=== PATIENT | female | born 1965 | race Two or more races ===

== ENCOUNTER 2024-04-15 17:52 | Emergency (ER) | payer BC ==
[~2024-04-15] VITALS: Ht 160 cm; Wt 67.4 kg
[2024-04-15 20:15] VITALS: BP 106/56; PULSE 120; RESP 16; TEMP 98.2; O2SAT 96
== END 2024-04-15 20:15 | disposition home or self-care (01) ==
LOC: ER 17:52
DX: T85.520A Displacement of bile duct prosthesis, initial encounter (principal); E11.22 Type 2 diabetes mellitus with diabetic chronic kidney disease; N18.6 End stage renal disease

== ENCOUNTER 2025-01-13 21:28 | Inpatient (IN) | payer BC ==
[~2025-01-13] VITALS: Ht 162.6 cm; Wt 77.3 kg
[2025-01-13] MEDS: DEXTROSE (50%) 50ML SYRG IV ONE (22:15)
--- NOTE | 2025-01-13 22:31 | DVH ---
CHEST RADIOGRAPH Indication: hypoglycemia Technique: Single frontal view of the chest was obtained Comparison: XY CHEST PORTABLE on DOS: 03/05/24 FINDINGS: Lines and Tubes: Dual lumen catheter in place with a right internal jugular vein with the tip in the right atrium. Lungs: Right lower lobe airspace disease and pleural effusion. Pleura: No effusion. No pneumothorax. Cardiomediastinal contours: Unremarkable Bones: No acute osseous abnormality. IMPRESSION: 1. Dual-lumen catheter in place from the right internal jugular vein with the tip in the right atrium . 2. Airspace disease in the right lower lobe with pleural effusion.
[2025-01-13 22:33] LABS: Hematocrit 18.2 % (36.0-46.0); Mean Corpuscular Hemoglobin 23.8 pg (28.0-32.0); Mean Corpuscular Hgb Conc. 31.2 g/dL (32.0-36.0); Mean Corpuscular Volume 76.3 fL (80.0-100.0); Platelet Count (auto) 61 10^3/uL (140-450); Red Blood Cells 2.39 10^6/uL (4.0-5.20); Red Cell Distribution Width 18.4 % (11.8-14.3); White Blood Cell 8.8 10^3/uL (4.4-10.8)
[2025-01-13 22:41] LABS: Sodium 137 mmol/L (136-145)
[2025-01-13 22:42] LABS: Anion Gap 5 (5-15)
[2025-01-13 22:47] LABS: BUN/Creatinine Ratio 7.7 (10.0-20.0); Blood Urea Nitrogen 14 mg/dL (9-23)
[2025-01-13 22:48] LABS: Hemoglobin 5.7 g/dL (12.2-16.2)
[2025-01-13 22:49] LABS: Band Neutrophils % (manual) 0; Basophils % (manual) 0 (0.0-2.0); Blast Cells 0; Metamyelocytes % 0; Myelocytes % 0; Promyelocytes % 0; Reactive Lymphocytes 0
[2025-01-13 22:51] LABS: Calcium 7.9 mg/dL (8.7-10.4); Carbon Dioxide 34 mmol/L (20-31); Chloride 98 mmol/L (98-107); Glucose 157 mg/dL (74-106); Potassium 3.5 mmol/L (3.5-5.1)
[2025-01-13 23:54] LABS: Eosinophils % (manual) 1 (0-7); Monocytes % (manual) 3 (0-12)
[2025-01-13 23:55] LABS: Anisocytosis Slight; Hypochromia Moderate; Lymphocytes % (manual) 12 (10.0-50.0); Platelet Estimate Decreased
[2025-01-13 23:56] LABS: Stomatocytes Few
[2025-01-14] VITALS (18 sets, daily range): BP systolic 96–123; BP diastolic 55–73; PULSE 84–117; RESP 13–24; TEMP 98–98.5; O2SAT 92–100
[2025-01-14] MEDS: cefTRIAXone 1GM/50ML D5W 50 ML IV ONE (01:07)
--- NOTE | 2025-01-14 01:12 | ED.PDOC ---
History of Present Illness HPI Comments 59-year-old female with a history of diabetes, liver failure status post liver transplant, and prior pneumonia brought in by family for evaluation of hypoglycemia. Patient's daughter states that her blood glucose has been decreasing since around 1300 today. At around 3:00 p.m. it was in the 50s and remained low despite the patient drinking juice. Patient also reports generalized weakness and shortness a breath. She denies any pain, nausea, vomiting, acute bleeding or black stools. 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 Hx Family History Family History: Reviewed,noncontributory to illness Social History Smoker: Non-Smoker Alcohol: Denies ETOH Use Drugs: Denies Drug Use Lives In: Home All Other Systems: Reviewed and Negative (Comprehensive systems review obtained and negative except for what is stated in the HPI.) Physical Exam General Appearance: No Apparent Distress, Other (Pale, chronically ill- appearing) HEENT: Pale Conjuntivae (L), Pale Conjuntivae (R), Other (Pupils and face symmetric, moist mucous membranes) Neck: Full Range of Motion, Normal Inspection Respiratory: Decreased Breath Sounds, No Accessory Muscle Use, No Respiratory Distress, Normal Breath Sounds Cardiovascular: No Edema, No JVD, Tachycardia Breast Exam: Deferred Gastrointestinal: Non Tender, Soft Genitalia: Deferred Pelvic: Deferred Rectal: Deferred Extremities: Normal inspection, Normal range of motion, Non-tender Neurologic: Alert (Oriented x4), Normal Affect, Normal Mood, Other (Moves all extremities. No gross focal deficit.) Cerebellar Function: NOT DONE Reflexes: NOT DONE Skin: Dry, Jaundice, Pallor, Other (Cool to the touch) Lymphatic: NOT DONE Was a procedure done? Was a procedure done?: No EKG EKG : Comments Sinus tach, rate 107, normal intervals, normal axis, low-voltage QRS, nonspecific T changes. Differential Dx Considerations may include: Hypoglycemia, infection such as UTI or pneumonia, anemia, sepsis, arrhythmia, MN, electrolyte imbalance, hypovolemia, renal failure, among others X-Ray, Labs, Meds, VS Vital Signs Date Time Temp Pulse Resp B/P (MAP) Pulse Ox O2 Delivery O2 Flow Rate FiO2 01/14/25 02:00 98.4 103 17 105/50 (68) 100 98.4 01/14/25 01:44 98.4 104 22 96/56 98.4 01/14/25 00:00 103 12 99/47 (64) 100 01/14/25 00:00 102 01/13/25 23:17 107 01/13/25 22:05 98.8 117 16 71/39 (50) 95 01/13/25 22:00 98.2 103 16 105/44 (64) 90 98.2 01/13/25 22:00 Nasal Cannula* 2 28 Lab Test 01/14/25 01:00 01/13/25 23:11 01/13/25 22:46 01/13/25 22:44 Range/Units Lactic Acid Level 2.5 *H 0.4-2.0 mmol/L Troponin I High Sensitivity < 3 L </=34 ng/L POC Glucose 109 H 109 H 70-106 mg/dl Test 01/13/25 22:20 01/13/25 21:52 Range/Units White Blood Count 8.8 4.4-10.8 10^3/uL Red Blood Count 2.39 L 4.0-5.20 10^6/uL Hemoglobin 5.7 *L 12.2-16.2 g/dL Hematocrit 18.2 L 36.0-46.0 % Mean Corpuscular Volume 76.3 L 80.0-100.0 fL Mean Corpuscular Hemoglobin 23.8 L 28.0-32.0 pg Mean Corpuscular Hemoglobin Concent 31.2 L 32.0-36.0 g/dL Red Cell Distribution Width 18.4 H 11.8-14.3 % Platelet Count 61 L 140-450 10^3/uL Mean Platelet Volume 7.7 6.9-10.8 fL Neutrophils (%) (Auto) 37.0-80.0 % Lymphocytes (%) (Auto) 10.0-50.0 % Monocytes (%) (Auto) 0.0-12.0 % Basophils (%) (Auto) 0.0-2.0 % Neutrophils # (Auto) 1.6-8.6 10 ^3/uL Lymphocytes # (Auto) 0.4-5.4 10 ^3/uL Monocytes # (Auto) 0-1.3 10 ^3/uL Differential Total Cells Counted 100.0 100 Neutrophils % (Manual) 84 H 37.0-80.0 Band Neutrophils % (Manual) 0 Lymphocytes % (Manual) 12 10.0-50.0 Monocytes % (Manual) 3 0-12 Eosinophils % (Manual) 1 0-7 Basophils % (Manual) 0 0.0-2.0 Metamyelocytes % (manual) 0 Myelocytes % (Manual) 0 Promyelocytes % (Manual) 0 Blast Cells % (Manual) 0 Reactive Lymphocytes 0 Platelet Estimate Decreased Hypochromasia (manual) Moderate Poikilocytosis (manual) Slight Anisocytosis (manual) Slight Microcytosis Slight Stomatocytes Few Schistocytes Few Sodium Level 137 136-145 mmol/L Potassium Level 3.5 3.5-5.1 mmol/L Chloride Level 98 98-107 mmol/L Carbon Dioxide Level 34 H 20-31 mmol/L Anion Gap 5 5-15 Blood Urea Nitrogen 14 9-23 mg/dL Creatinine 1.82 H 0.550-1.02 mg/dL Glomerular Filtration Rate Calc 32 >90 mL/min BUN/Creatinine Ratio 7.7 L 10.0-20.0 Serum Glucose 157 H 74-106 mg/dL Calcium Level 7.9 L 8.7-10.4 mg/dL Troponin I High Sensitivity < 3 L </=34 ng/L B-Type Natriuretic Peptide 233.77 0-100 pg/mL POC Glucose 37 *L 70-106 mg/dl Current Medications Medications (Trade) Dose Ordered Sig/Yani Route Start Time Stop Time Status Last Admin Dextrose 50 ml ONCE ONCE IV 01/13/25 22:15 01/13/25 22:16 DC 01/13/25 22:15 Ceftriaxone Sodium 50 ml @ 100 mls/hr ONCE ONCE IV 01/14/25 01:00 01/14/25 01:29 DC 01/14/25 01:07 Azithromycin 250 ml @ 125 mls/hr ONCE ONCE IV 01/14/25 01:00 01/14/25 02:59 DC 01/14/25 01:16 PROCEDURE(s): CXRP - CHEST PORTABLE REASON: hypoglycemia ORDER NUMBER(s): [id number], ACCESSION NUMBER(s): [id number] CHEST RADIOGRAPH Indication: hypoglycemia Technique: Single frontal view of the chest was obtained Comparison: XY CHEST PORTABLE on DOS: 03/05/24 FINDINGS: Lines and Tubes: Dual lumen catheter in place with a right internal jugular vein with the tip in the right atrium. Lungs: Right lower lobe airspace disease and pleural effusion. Pleura: No effusion. No pneumothorax. Cardiomediastinal contours: Unremarkable Bones: No acute osseous abnormality. IMPRESSION: 1. Dual-lumen catheter in place from the right internal jugular vein with the tip in the right atrium. 2. Airspace disease in the right lower lobe with pleural effusion. X-Ray, Labs, Meds, VS Comment 59-year-old female with a history of diabetes, liver failure status post liver transplant, CKD brought in by family for evaluation of hypoglycemia, shortness of breath and generalized weakness. Accu-Chek at triage was 37 Vitals remarkable for heart rate 103, BP 105/44, oxygen saturation 90% on 2 L nasal cannula Exam remarkable for pallor, tachycardia and diminished breath sounds Rhythm strip independently interpreted by me: Sinus tach, rate 107, no ectopy. Chest x-ray IMPRESSION: 1. Dual-lumen catheter in place from the right internal jugular vein with the tip in the right atrium. 2. Airspace disease in the right lower lobe with pleural effusion. CBC remarkable for hemoglobin 5.7, hematocrit 18.2, platelets 61, metabolic panel remarkable for CO2 34, creatinine 1.82, glucose 157, calcium 7.9, troponin negative x2, BNP 233.77, UA pending Patient treated with the following in the ED: D50 1 amp IV and p.o. juice, typed and crossed for 2 units packed red cells and transfusion ordered, Rocephin 1 g IV, Zithromax 500 mg IV On re-evaluation, patient is alert with stable vitals. Blood glucose is 103 on repeat Accu-Chek. Plan is to admit the patient for transfusion, IV antibiotics and hematology/pulmonology evaluation Time of 1ST Reevaluation: 01:08 Reevaluation 1ST: Improved Patient Education/Counseling: Diagnosis, Treatment Family Education/Counseling: Diagnosis, Treatment Departure 1 Departure Time of Disposition: 01:08 Impression: Primary Impression: Hypoglycemia Additional Impressions: Anemia Qualified Codes: D64.9 - Anemia, unspecified Thrombocytopenia Pneumonia Qualified Codes: J18.9 - Pneumonia, unspecified organism Pleural effusion Disposition: ADMITTED INPATIENT Admit to: Tele Condition: Guarded Critical Care Note Critical Care Time?: Yes (45 min-critical care time only) Critical care comment: Critical care time including multiple bedside re-evaluations, review of lab and imaging studies, and discussion of the case with the admitting provider. Patient is high risk for hemodynamic, metabolic and/or respiratory decompensat ion. Stability Stability form required: No Heart Score Heart Score: Heart Score Response (Comments) Value History N/A 0 EKG N/A 0 Age N/A 0 Risk Factors N/A 0 Troponin N/A 0 Total 0 HUSSAIN BETH MD Jan 14, 2025 01:12
[2025-01-14] MEDS: AZITHROMYCIN 500MG/ 250ML 250 ML IV ONE (01:16)
[2025-01-14 01:44] LABS: Lactic Acid w/Reflex 2.5 mmol/L (0.4-2.0)
[2025-01-14] MEDS ORDERED: MORPHINE SULFATE INJ 2 MG/ml SYRG IV PRN (02:15)
[2025-01-14] MEDS ORDERED: METOPROLOL TARTRATE 25 MG TAB PO ONE (02:15)
[2025-01-14] MEDS ORDERED: MYCOPHENOLATE 250 MG CAP PO SCH ×2 (02:15→10:00)
[2025-01-14] MEDS ORDERED: NITROGLYCERIN 0.4 MG SL TAB SL PRN (02:15)
--- NOTE | 2025-01-14 03:22 | DVHHPRES ---
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 Brought by the family due to hypoglycemia. According to the daughter and the patient, patient had dialysis, 2lt were pulled out and she came at home at 5:00 p.m. Found her sugars in the 50s. her insulin sliding scale at home is lispro 15 13 and 3 Here in the emergency room, was found tachycardic, hypotensive and hypoxemic with the need of 2lt of O2 CBC showed mild leukopenia, severe anemia hemoglobin 5.7, thrombocytopenia 61 CMP elevated creatinine 1.82, lactic acid 2.5 chest xray: 1. Dual-lumen catheter in place from the right internal jugular vein with the tip in the right atrium. 2. Airspace disease in the right lower lobe with pleural effusion. Glucose: 37 109 109 after dextrose and juice 2RBC were ordered Azithromycin and ceftriaxone was started The daughter states that patient was having diarrhea and her dr started fidax omicin, but she did not pick it up, she denies diarrhea now Home meds: Mycophenolate 250 mg b.i.d. fluconazole 1 tablet daily tacrolimus 4 mg b.i.d. lispro 15 13 and 3 atovaquone 750 mg per 5 mL 10 cc daily furosemide 40 mg daily only the days of dialysis, metoprolol 12.5 b.i.d., pantoprazole 40 mg daily Review of Systems Constitutional: No: Fever, Chills, Sweats, Weakness, Malaise, Other Eyes: No: Pain, Vision change, Conjunctivae inflammation, Eyelid inflammation, Other, Redness ENT: No: Ear pain, Ear discharge, Nose pain, Nose discharge, Nose congestion, Mouth pain, Mouth swelling, Throat pain, Throat swelling, Other Respiratory: No: Cough, Dry, Shortness of breath, SOB with excertion, Wheezing, Hemoptysis, Pleuritic Pain, Sputum, Wheezing, Other Cardiovascular: No: Chest Pain, Palpitations, Orthopnea, Paroxysmal Noc. Dyspnea, Edema, Lt Headedness, Other Gastrointestinal: No: Nausea, Vomiting, Abdominal Pain, Diarrhea, Constipation, Melena, Hematochezia, Other Genitourinary: No Dysuria, No Frequency, No Incontinence, No Hematuria, No Retention, No Other Skin: No: Rash, Lesions, Jaundice, Bruising, Other Neurological: No: Weakness, Numbness, Incoordination, Change in speech, Confusion, Seizures, Other Allergies: Coded Allergies: NO KNOWN ALLERGIES (Unverified , 03/05/24) Medications Current Medications Medications Dose Ordered Sig/Yani Route Start Time Stop Time Status Last Admin Dose Admin Nitroglycerin 0.4 mg Q5MINP PRN SL 01/14/25 02:15 Morphine Sulfate 2 mg Q30M PRN IV 01/14/25 02:15 Mycophenolate Mofetil 250 mg BID PO 01/14/25 02:15 Tacrolimus 4 mg BID PO 01/14/25 10:00 Pantoprazole Sodium 40 mg DAILY IV 01/14/25 10:00 Metoprolol Tartrate 12.5 mg DAILY PO 01/14/25 10:00 Patient Own Medication 10 DAILY PO 01/14/25 10:00 UNV Azithromycin 250 ml @ 125 mls/hr DAILY IV 01/14/25 10:00 Ceftriaxone Sodium 50 ml @ 100 mls/hr DAILY IV 01/14/25 10:00 Fluconazole 100 mg DAILY PO 01/14/25 10:00 Exam Vital Signs Vital Signs Date Time Temp Pulse Resp B/P (MAP) Pulse Ox O2 Delivery O2 Flow Rate FiO2 01/14/25 02:23 98.3 100 24 108/60 98.3 01/14/25 02:00 100 01/13/25 22:00 Nasal Cannula* 2 28 General Appearance: Alert, Oriented X3, Cooperative, mild distress HEENT: Atraumatic, PERRLA, EOMI, Mucous membr. moist/pink Respiratory: Other (Diminished breath sounds, dialysis catheter in place) Cardiovascular: Regular rate, Normal S1, Normal S2 Abdominal: Normal bowel sounds, Soft Extremities: No clubbing, No cyanosis, No edema Skin: No rashes Neuro: Normal gait, Normal speech, Strength at 5/5 X4 ext Psych/Mental Status: Mental status NL, Mood NL Labs/Xrays Labs Test 01/14/25 01:00 01/13/25 23:11 01/13/25 22:46 01/13/25 22:20 Range/Units Lactic Acid Level 2.5 *H 0.4-2.0 mmol/L Troponin I High Sensitivity < 3 L </=34 ng/L POC Glucose 109 H 70-106 mg/dl White Blood Count 8.8 4.4-10.8 10^3/uL Red Blood Count 2.39 L 4.0-5.20 10^6/uL Hemoglobin 5.7 *L 12.2-16.2 g/dL Hematocrit 18.2 L 36.0-46.0 % Mean Corpuscular Volume 76.3 L 80.0-100.0 fL Mean Corpuscular Hemoglobin 23.8 L 28.0-32.0 pg Mean Corpuscular Hemoglobin Concent 31.2 L 32.0-36.0 g/dL Red Cell Distribution Width 18.4 H 11.8-14.3 % Platelet Count 61 L 140-450 10^3/uL Mean Platelet Volume 7.7 6.9-10.8 fL Neutrophils (%) (Auto) 37.0-80.0 % Lymphocytes (%) (Auto) 10.0-50.0 % Monocytes (%) (Auto) 0.0-12.0 % Basophils (%) (Auto) 0.0-2.0 % Neutrophils # (Auto) 1.6-8.6 10 ^3/uL Lymphocytes # (Auto) 0.4-5.4 10 ^3/uL Monocytes # (Auto) 0-1.3 10 ^3/uL Differential Total Cells Counted 100.0 100 Neutrophils % (Manual) 84 H 37.0-80.0 Band Neutrophils % (Manual) 0 Lymphocytes % (Manual) 12 10.0-50.0 Monocytes % (Manual) 3 0-12 Eosinophils % (Manual) 1 0-7 Basophils % (Manual) 0 0.0-2.0 Metamyelocytes % (manual) 0 Myelocytes % (Manual) 0 Promyelocytes % (Manual) 0 Blast Cells % (Manual) 0 Reactive Lymphocytes 0 Platelet Estimate Decreased Hypochromasia (manual) Moderate Poikilocytosis (manual) Slight Anisocytosis (manual) Slight Microcytosis Slight Stomatocytes Few Schistocytes Few Sodium Level 137 136-145 mmol/L Potassium Level 3.5 3.5-5.1 mmol/L Chloride Level 98 98-107 mmol/L Carbon Dioxide Level 34 H 20-31 mmol/L Anion Gap 5 5-15 Blood Urea Nitrogen 14 9-23 mg/dL Creatinine 1.82 H 0.550-1.02 mg/dL Glomerular Filtration Rate Calc 32 >90 mL/min BUN/Creatinine Ratio 7.7 L 10.0-20.0 Serum Glucose 157 H 74-106 mg/dL Calcium Level 7.9 L 8.7-10.4 mg/dL B-Type Natriuretic Peptide 233.77 0-100 pg/mL Assessment/Plan Assessment/Plan #Severe anemia #Sepsis due to pneumonia Gram-positive gram negative #Acute respiratory failure #Thrombocytopenia #Hypoglycemia resolved #Pleural effusion #Long-term diabetes- insulin-dependent #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 associated the steatotic liver disease status post liver transplant 2023 #ESRD on hemodialysis (M and F) #Immunocompromised state #Lactic acidosis Admit Telemetry Oxygen 2 L Continue transfusion of 2 red blood cells Continue azithromycin ceftriaxone Nephrology [facility] group consult Start mycophenolate tacrolimus Start atovaquone and fluconazole Start metoprolol pantoprazole Order blood culture respiratory culture stool occult blood stool bacterial culture stool WBC C diff, iron panel erythropoietin ferritin MRSA screen urine culture Labs for tomorrow: CBC CMP UDS A1c lactic acid lipid panel magnesium phosphorus PT PTT TSH, vitamin-D vitamin B12, haptoglobin Order chest ultrasound and echo Order EKG Hold on insulin for now Accu-Cheks every 4 hours COVID-influenza swab Case discussed with Dr. Fernandes Time spent on care 31 minutes Full code Plan discussed with: Patient, Other (rn) My Orders Orders - LEONCIO VARGAS RESIDENT Procedure Category Date Status Time Admit ADMIT 01/14/25 Transmitted 02:07 Nitroglycerin PHA 01/14/25 In Process Sublingual (Ntrostat 02:15 Morphine Sulfate PHA 01/14/25 In Process Injection 02:15 Oxygen By Nasal RT 01/14/25 Transmitted Cannula 02:07 Stat Ekg For Chest JOANNA 01/14/25 In Process Pain 02:07 Notify Md Of Changes JOANNA 01/14/25 In Process From Base 02:07 Development And Housing Director For JOANNA 01/14/25 In Process 24 Hours 02:07 Emergency Dysrhythmia JOANNA 01/14/25 In Process Protocol 02:07 Rhythm Strips Once JOANNA 01/14/25 In Process Every Shift 02:07 *Dr. Paige Pollack -Da CONS 01/14/25 Transmitted Elizabet 02:07 Mycophenolate Mofetil PHA 01/14/25 In Process (Cellcept) 02:15 Tacrolimus (Prograf) PHA 01/14/25 In Process 10:00 Pantoprazole PHA 01/14/25 In Process (Protonix) 10:00 Respiratory Culture TOMI 01/14/25 Logged W/ Gs 02:07 Stool Occult Blood LAB 01/14/25 Logged 02:07 Stool Bacterial TOMI 01/14/25 Logged Culture 02:07 Stool Wbc LAB 01/14/25 Logged 02:07 Clostridium Difficile TOMI 01/14/25 Logged Toxin 02:07 Iron Panel LAB 01/14/25 Logged 02:07 Erythropoietin LAB 01/14/25 Logged 02:07 Ferritin LAB 01/14/25 Logged 02:07 Mrsa Screen TOMI 01/14/25 Logged 02:07 Urine Bacterial TOMI 01/14/25 Logged Culture 02:07 Complete Blood Count LAB 01/15/25 Verified 04:00 Comprehensive LAB 01/15/25 Verified Metabolic Panel 04:00 Drug Screen LAB 01/15/25 Verified 04:00 Hemoglobin A1c LAB 01/15/25 Verified 04:00 Lactic Acid W/ Reflex LAB 01/15/25 Verified Order 04:00 Lipid Panel LAB 01/15/25 Verified 04:00 Magnesium LAB 01/15/25 Verified 04:00 Phosphorus LAB 01/15/25 Verified 04:00 PTPTT LAB 01/15/25 Verified 04:00 Thyroid Stimulating LAB 01/15/25 Verified Hormone 04:00 Accucheck ED NURSING 01/14/25 Transmitted 07:00 Accucheck ED NURSING 01/14/25 Transmitted 11:30 Accucheck ED NURSING 01/14/25 Transmitted 17:00 Accucheck ED NURSING 01/14/25 Transmitted 22:00 Accucheck ED NURSING 01/15/25 Transmitted 07:00 Accucheck ED NURSING 01/15/25 Transmitted 11:30 Accucheck ED NURSING 01/15/25 Transmitted 17:00 Accucheck ED NURSING 01/15/25 Transmitted 22:00 Accucheck ED NURSING 01/16/25 Transmitted 07:00 Accucheck ED NURSING 01/16/25 Transmitted 11:30 Accucheck ED NURSING 01/16/25 Transmitted 17:00 Accucheck ED NURSING 01/16/25 Transmitted 22:00 Accucheck ED NURSING 01/17/25 Transmitted 07:00 Accucheck ED NURSING 01/17/25 Transmitted 11:30 Accucheck ED NURSING 01/17/25 Transmitted 17:00 Accucheck ED NURSING 01/17/25 Transmitted 22:00 Accucheck ED NURSING 01/18/25 Transmitted 07:00 Accucheck ED NURSING 01/18/25 Transmitted 11:30 Accucheck ED NURSING 01/18/25 Transmitted 17:00 Accucheck ED NURSING 01/18/25 Transmitted 22:00 Accucheck ED NURSING 01/19/25 Transmitted 07:00 Accucheck ED NURSING 01/19/25 Transmitted 11:30 Accucheck ED NURSING 01/19/25 Transmitted 17:00 Accucheck ED NURSING 01/19/25 Transmitted 22:00 Accucheck ED NURSING 01/20/25 Transmitted 07:00 Accucheck ED NURSING 01/20/25 Transmitted 11:30 Accucheck ED NURSING 01/20/25 Transmitted 17:00 Accucheck ED NURSING 01/20/25 Transmitted 22:00 Accucheck ED NURSING 01/21/25 Transmitted 07:00 Accucheck ED NURSING 01/21/25 Transmitted 11:30 Accucheck ED NURSING 01/21/25 Transmitted 17:00 Accucheck ED NURSING 01/21/25 Transmitted 22:00 Metoprolol Tartrate PHA 01/14/25 In Process Tablet (Lopressor Ta 10:00 Patients Own PHA 01/14/25 Pending Medication 10:00 Azithromycin 500mg/ PHA 01/14/25 In Process 250ml (Zithromax 50 10:00 Ceftriaxone 1gm/50ml PHA 01/14/25 In Process D5w (Rocephin) 10:00 Haptoglobin LAB 01/14/25 Logged 02:34 Vitamin B12 LAB 01/15/25 Verified 04:00 Vitamin D, 25-Hydroxy LAB 01/15/25 Verified 04:00 Mrsa Screen TOMI 01/14/25 Uncollected 02:37 Rapid Influenza A&B LAB 01/14/25 Logged 02:37 Fluconazole Tablet PHA 01/14/25 In Process (Diflucan Tablet) 10:00 Electrocardigram EKG 01/14/25 Logged 02:44 Chest Ultrasound US 01/14/25 Logged 02:50 Date of Service: Jan 14, 2025 Billing Provider: ABRAHAM FERNANDES MD Common Visit Codes: 49520-LPDKHOC INP/OBS CARE (HIGH) LEONCIO VARGAS RESIDENT Jan 14, 2025 03:22 ABRAHAM FERNANDES MD Jan 14, 2025 08:45
[2025-01-14 04:10] LABS: COVID19 ANTIGEN SOFIA FIA NEGATIVE (NEGATIVE); Rapid Influenza A Negative (Negative); Rapid Influenza B Negative (Negative)
--- NOTE | 2025-01-14 05:18 | ECG ---
[facility] Test Date: 2025-01-13 Test Time: 23:17:57 Pat Name: RATNA SHETTY Department: ED Room: 0237T Gender: F Rose Grower: EVETTE : 1965 Requested By: HUSSAIN SWARTZ Order Number: [id number] Reading MD: Sanju Sherwood Measurements Intervals [place] Rate: 107 P: 54 MD: 127 QRS: 71 QRSD: 75 T: 57 QT: 326 QTc: 435 Interpretive Statements Sinus tachycardia Ventricular premature complex Aberrant conduction of SV complex(es) Low voltage, extremity leads Nonspecific T abnormalities, lateral leads Electronically Signed On 01-16-2025 22:03:59 PST by Sanju Sherwood Please click the below link to view image of tracing.
--- NOTE | 2025-01-14 07:58 | DVH ---
Bilateral Chest Sonogram Date: 01/14/2025 07:01 AM Clinical history: bilateral pleural effusion Technique: Limited sonographic evaluation of the bilateral chest was performed to evaluate for pleu ral effusion. Finding/Impression: There is are trace bilateral pleural effusions visualized which is insufficient fluid for performance of thoracentesis. Complex cystic structure in the liver 18 cm incidentally seen. Further evaluation with MRI with contr ast is recommended.
[2025-01-14] MEDS: ATOVAQUONE 750 MG/5 ML PO SCH (10:00)
[2025-01-14] MEDS: FLUCONAZOLE 100 MG TAB PO SCH (10:31)
[2025-01-14] MEDS: METOPROLOL TARTRATE 25 MG TAB PO SCH (10:31)
[2025-01-14] MEDS: PANTOPRAZOLE 40 MG/10 ML VIAL INJ IV SCH (10:32)
[2025-01-14] MEDS: TACROLIMUS 1 MG CAP PO SCH (10:33)
[2025-01-14] MEDS: MYCOPHENOLATE 250 MG CAP PO SCH (10:33)
[2025-01-14 10:41] LABS: % Iron Saturation 20.4 % (15-50)
[2025-01-14] MEDS: cefTRIAXone 1GM/50ML D5W 50 ML IV SCH (10:49)
[2025-01-14] MEDS: AZITHROMYCIN 500MG/ 250ML 250 ML IV SCH (11:34)
--- NOTE | 2025-01-14 12:31 | DVHSR ---
APPROVED REPORT EXAM: Two-dimensional and M-mode echocardiogram with Doppler and color Doppler. Blood Pressure: 110/62 mmHg INDICATION rule out chf RISK FACTORS Height: 5'4, Weight: 120 DIMENSIONS LVDd4.1 (3.8-5.7cm)LA (2D)4.2 (1.9-4.0cm)Aortic Root3.1 (2.0-3.7cm) LVDs2.7 (2.5-4.0cm)LA (MM) (1.9-4.0cm)Aortic Cusp Exc1.9 (1.5-2.0cm) EF (%) 60.0 (55-70%)Rt. Atrium2.5 (1.9-4.0cm)Asc. Aorta2.8 cm IVSd1.0 (0.7-1.1cm)RV (D)2.2 (1.8-2.4cm) PWd0.9 (0.7-1.1cm) Mitral Valve MitralMitral Stenosis E wave0.81m/sMV Mean GR.mmHg A wave0.87m/sMV Peak GR.mmHg E/A ratio0.92D MVAcm2 DECEL [id number] 1/2 Timems Aortic Valve Aortic ValveAortic Stenosis V11.14m/Breonna Mean GR.5mmHg V21.38m/Breonna Peak GR.8mmHg LVOT Diameter1.8 (1.8-2.4cm)Doppler AVA2.10cm2 Pulmonic Valve V20.96m/s Conclusion lvef 60% by visual estimate normal rv function left atrium enlarged mild no severe valve abnormaliteis noted
--- NOTE | 2025-01-14 13:48 | DVHPN2 ---
Progress Note Date Seen: Jan 14, 2025 Medical Necessity Reason Pt with a Central, PICC or Fol: No Subjective Patient reports: No new complaints Review of Systems: HEENT:Normal, CVS:Normal, RESPIRATORY:Normal, GI:Normal, :Normal, MSK:Normal, NEURO:Normal Objective vital signs Vital Sign Date Time Temp Pulse Resp B/P (MAP) Pulse Ox O2 Delivery O2 Flow Rate FiO2 01/14/25 11:49 97 01/14/25 11:48 109/57 01/14/25 10:00 18 100 01/14/25 08:15 Nasal Cannula* 2 28 01/14/25 06:14 98.1 98.1 Total Intake and Output 01/13/25 01/13/25 01/14/25 15:00 23:00 07:00 Intake Total 1500 ml Output Total 0 ml Balance 1500 ml medications Current Medications Medications Dose Ordered Sig/Yani Route Start Time Stop Time Status Last Admin Dose Admin Nitroglycerin 0.4 mg Q5MINP PRN SL 01/14/25 02:15 Morphine Sulfate 2 mg Q30M PRN IV 01/14/25 02:15 Tacrolimus 4 mg BID PO 01/14/25 10:00 01/14/25 10:33 4 MG Pantoprazole Sodium 40 mg DAILY IV 01/14/25 10:00 01/14/25 10:32 40 MG Metoprolol Tartrate 12.5 mg DAILY PO 01/14/25 10:00 01/14/25 10:31 12.5 MG Patient Own Medication 10 DAILY PO 01/14/25 10:00 Azithromycin 250 ml @ 125 mls/hr DAILY IV 01/14/25 10:00 01/14/25 11:34 125 MLS/HR Ceftriaxone Sodium 50 ml @ 100 mls/hr DAILY IV 01/14/25 10:00 01/14/25 10:49 100 MLS/HR Fluconazole 100 mg DAILY PO 01/14/25 10:00 01/14/25 10:31 100 MG Mycophenolate Mofetil 250 mg Q12H PO 01/14/25 09:00 01/14/25 10:33 250 MG Examination: GENERAL:Normal, HEENT:Normal, NECK:Normal, LUNGS:Normal, CVS:Normal, ABDOMEN:Normal, MSK:Normal, SKIN:Normal, NEURO:Normal, :Normal laboratory and microbiology Laboratory Tests 01/13/25 22:20 Test 01/13/25 22:20 Range/Units Serum Glucose 157 H 74-106 mg/dL Microbiology Date/Time Source Procedure Growth Status 01/14/25 03:06 Stool Stool Culture - Preliminary Resulted 01/14/25 03:06 Stool Shiga Toxin I & II - Final Resulted 01/14/25 03:06 Stool Clostridium difficile Toxin Assay - Final Resulted 01/14/25 02:45 Nose MRSA Screen - Final Complete Problem List/Assessment/Plan Problem List/Assessment/Plan #1 hypoglycemia: ssi #2 anemia s/p transfusion: check cbc #3 thrombocytopenia #4 s/p liver txp #5 esrd on dialysis #6 acute diastolic heart failure: dialysis #7 dm #8 h/o recent c diff infection advance care planning- full code- time spent 19 mins Plan discussed with: Patient My Orders My Orders Orders - VIKI HUFF MD Procedure Category Date Status Time Complete Blood Count LAB 01/14/25 Logged 13:40 Complete Blood Count LAB 01/15/25 Verified 06:00 Comprehensive LAB 01/15/25 Verified Metabolic Panel 06:00 Chest Portable XY 01/15/25 Logged 06:00 Pt Request For Service PT 01/14/25 Logged 13:40 Date of Service: Jan 14, 2025 Billing Provider: VIKI HUFF MD Common Visit Codes: [id number] INP/OBS CARE(HIGH) Secondary Visit Codes: [id number] CARE PLAN 30 MINUTES CC Plasma Assessment Blood Product Administration S: [id number] VIKI HUFF MD Jan 14, 2025 13:48
[2025-01-14] MEDS ORDERED: DEXTROSE (50%) 50ML SYRG IV PRN (14:00)
[2025-01-14] MEDS ORDERED: TACR1CAP4 (15:32)
[2025-01-14] MEDS ORDERED: ATOV5SUS PO (15:32)
[2025-01-14] MEDS ORDERED: MYCO250C4 (15:32)
[2025-01-14] MEDS ORDERED: URSO300C2 (15:32)
[2025-01-14] MEDS ORDERED: FURO20TA4 (15:32)
[2025-01-14] MEDS ORDERED: FIDA200T (15:32)
--- NOTE | 2025-01-14 15:53 | DVHINCON2 ---
Date of service: Jan 14, [address] Cottrell Reason for Consultation End-stage kidney disease History of Present Illness This is a 59-year-old female with history of liver transplant secondary to nonalcoholic steatohepatitis in May of 2024 at [facility], end-stage kidney disease requiring dialysis twice a week brought into the emergency room because of hypoglycemia. In the ER patient noted to be anemic with a hemoglobin of 5.7. Transfused PRBC. Chest x-ray with evidence of airspace disease. Started on IV antibiotics. Nephrology consulted for continuation of dialysis The patient did undergo dialysis yesterday with ultrafiltration of 2 L. Past Medical History As stated above Past Surgical History as stated above Family History: Patient reports no known family medical history. Family History negative Social History negative Allergies: Coded Allergies: NO KNOWN ALLERGIES (Unverified , 03/05/24) Home Meds Reported Medications Furosemide (Furosemide) 20 Mg Tab 01/14/25 Ursodiol (Ursodiol) 300 Mg Cap 01/14/25 Tacrolimus (Tacrolimus) 1 Mg Cap 01/14/25 Atovaquone (Atovaquone) 750 Mg/5 Ml S[place], PO 01/14/25 Fidaxomicin (DIFICID) 200 Mg Tab, 1 01/14/25 Mycophenolate Mofetil (Mycophenolate Mofetil) 250 Mg Cap 01/14/25 Current Medications Current Medications Medications (Trade) Dose Ordered Sig/Yani Route PRN Reason Start Time Stop Time Status Last Admin Nitroglycerin (Ntrostat Sublingual) 0.4 mg Q5MINP PRN SL FOR CHEST PAIN 01/14/25 02:15 Morphine Sulfate 2 mg Q30M PRN IV FOR CHEST PAIN 01/14/25 02:15 Mycophenolate Mofetil (Cellcept) 250 mg BID PO 01/14/25 02:15 01/14/25 03:25 DC Tacrolimus (Prograf) 4 mg BID PO 01/14/25 10:00 01/14/25 10:33 Pantoprazole Sodium (Protonix) 40 mg DAILY IV 01/14/25 10:00 01/14/25 10:32 Metoprolol Tartrate (Lopressor Tablet) 12.5 mg DAILY PO 01/14/25 10:00 01/14/25 13:44 DC 01/14/25 10:31 Patient Own Medication 10 DAILY PO 01/14/25 10:00 Azithromycin 250 ml @ 125 mls/hr DAILY IV 01/14/25 10:00 01/14/25 13:44 DC 01/14/25 11:34 Ceftriaxone Sodium 50 ml @ 100 mls/hr DAILY IV 01/14/25 10:00 01/14/25 13:44 DC 01/14/25 10:49 Fluconazole (Diflucan Tablet) 100 mg DAILY PO 01/14/25 10:00 01/14/25 10:31 Mycophenolate Mofetil (Cellcept) 250 mg BID PO 01/14/25 10:00 01/14/25 03:26 DC Mycophenolate Mofetil (Cellcept) 250 mg Q12H PO 01/14/25 09:00 01/14/25 10:33 Diagnostic Test (Pha) (Accu-Chek Comfort Curve T) 1 strip ACHS 01/14/25 17:00 Insulin Human Regular (InsuLIN R) ACHS SC 01/14/25 17:00 Dextrose 50 ml UD PRN IV Blood Sugar LESS THAN 60 01/14/25 14:00 Review of Systems 12 point review of systems negative except as stated in the HPI Vital Signs Vital Signs Date Time Temp Pulse Resp B/P (MAP) Pulse Ox O2 Delivery O2 Flow Rate FiO2 01/14/25 15:11 87 18 100 Room Air* 0 21 01/14/25 14:41 98.3 106/60 (75) 98.3 Physical Exam General Appearance: Alert, Oriented X3, Cooperative, mild distress HEENT: Atraumatic, PERRLA, EOMI, Mucous membr. moist/pink Respiratory: Other (Diminished breath sounds, dialysis catheter in place) Cardiovascular: Regular rate, Normal S1, Normal S2 Abdominal: Normal bowel sounds, Soft Extremities: No clubbing, No cyanosis, No edema Skin: No rashes Neuro: Normal gait, Normal speech, Strength at 5/5 X4 ext Psych/Mental Status: Mental status NL, Mood NL Labs/Diagnostic Data Labs Test 01/14/25 09:54 01/14/25 07:07 01/14/25 03:06 01/14/25 02:45 Range/Units Iron Level 28 L 50-170 ug/dL Total Iron Binding Capacity 137 L 250-425 ug/dL Percent Iron Saturation 20.4 15-50 % Ferritin 2835.2 H 10-291 ng/mL POC Glucose 151 H 70-106 mg/dl Stool Occult Blood Negative Negative Stool Occult Blood Sample #3 Negative Stool for White Cells None seen Influenza Type A Antigen Negative Negative Influenza Type B Antigen Negative Negative SARS-CoV-2 Antigen (Rapid) Negative NEGATIVE Test 01/14/25 01:00 01/13/25 23:11 01/13/25 22:20 Range/Units Lactic Acid Level 2.5 *H 0.4-2.0 mmol/L Troponin I High Sensitivity < 3 L </=34 ng/L White Blood Count 8.8 4.4-10.8 10^3/uL Red Blood Count 2.39 L 4.0-5.20 10^6/uL Hemoglobin 5.7 *L 12.2-16.2 g/dL Hematocrit 18.2 L 36.0-46.0 % Mean Corpuscular Volume 76.3 L 80.0-100.0 fL Mean Corpuscular Hemoglobin 23.8 L 28.0-32.0 pg Mean Corpuscular Hemoglobin Concent 31.2 L 32.0-36.0 g/dL Red Cell Distribution Width 18.4 H 11.8-14.3 % Platelet Count 61 L 140-450 10^3/uL Mean Platelet Volume 7.7 6.9-10.8 fL Neutrophils (%) (Auto) 37.0-80.0 % Lymphocytes (%) (Auto) 10.0-50.0 % Monocytes (%) (Auto) 0.0-12.0 % Basophils (%) (Auto) 0.0-2.0 % Neutrophils # (Auto) 1.6-8.6 10 ^3/uL Lymphocytes # (Auto) 0.4-5.4 10 ^3/uL Monocytes # (Auto) 0-1.3 10 ^3/uL Differential Total Cells Counted 100.0 100 Neutrophils % (Manual) 84 H 37.0-80.0 Band Neutrophils % (Manual) 0 Lymphocytes % (Manual) 12 10.0-50.0 Monocytes % (Manual) 3 0-12 Eosinophils % (Manual) 1 0-7 Basophils % (Manual) 0 0.0-2.0 Metamyelocytes % (manual) 0 Myelocytes % (Manual) 0 Promyelocytes % (Manual) 0 Blast Cells % (Manual) 0 Reactive Lymphocytes 0 Platelet Estimate Decreased Hypochromasia (manual) Moderate Poikilocytosis (manual) Slight Anisocytosis (manual) Slight Microcytosis Slight Stomatocytes Few Schistocytes Few Sodium Level 137 136-145 mmol/L Potassium Level 3.5 3.5-5.1 mmol/L Chloride Level 98 98-107 mmol/L Carbon Dioxide Level 34 H 20-31 mmol/L Anion Gap 5 5-15 Blood Urea Nitrogen 14 9-23 mg/dL Creatinine 1.82 H 0.550-1.02 mg/dL Glomerular Filtration Rate Calc 32 >90 mL/min BUN/Creatinine Ratio 7.7 L 10.0-20.0 Serum Glucose 157 H 74-106 mg/dL Calcium Level 7.9 L 8.7-10.4 mg/dL B-Type Natriuretic Peptide 233.77 0-100 pg/mL Microbiology Date/Time Source Procedure Growth Status 01/14/25 03:06 Stool Stool Culture - Preliminary Resulted 01/14/25 03:06 Stool Shiga Toxin I & II - Final Resulted 01/14/25 03:06 Stool Clostridium difficile Toxin Assay - Final Resulted 01/14/25 02:45 Nose MRSA Screen - Final Complete Assessment End-stage kidney disease on hemodialysis Anemia Pneumonia Thrombocytopenia History of liver transplant Hypoglycemia Plan/Recommendation Continue with IV antibiotics Next hemodialysis scheduled for Monday. Electrolytes within acceptable limits No evidence of fluid overload Continue with current immunosuppression. Patient is on mycophenolate and Prograf. Plan discussed with: Patient CORBIN SAVAGE MD Jan 14, 2025 15:53
[2025-01-14] MEDS: ACCU-CHEK COMFORT CURVE STRIP VI SCH (16:35)
[2025-01-14] MEDS: InsuLIN REG 1unit/0.01ml Soln (100units/ml) SC SCH (16:35)
[2025-01-14 16:46] LABS: Hemoglobin 9.1 g/dL (12.2-16.2); Red Blood Cells 3.47 10^6/uL (4.0-5.20)
[2025-01-14 16:50] LABS: Hematocrit 27.9 % (36.0-46.0); Mean Corpuscular Hemoglobin 26.3 pg (28.0-32.0); Mean Corpuscular Hgb Conc. 32.7 g/dL (32.0-36.0); Mean Corpuscular Volume 80.4 fL (80.0-100.0); Platelet Count (auto) 40 10^3/uL (140-450); Red Cell Distribution Width 19.4 % (11.8-14.3); White Blood Cell 9.7 10^3/uL (4.4-10.8)
[2025-01-14 16:54] LABS: Band Neutrophils % (manual) 0; Basophils % (manual) 0 (0.0-2.0); Blast Cells 0; Metamyelocytes % 0; Myelocytes % 0; Promyelocytes % 0; Reactive Lymphocytes 0
[2025-01-14 17:21] LABS: Eosinophils % (manual) 2 (0-7); Lymphocytes % (manual) 7 (10.0-50.0); Monocytes % (manual) 1 (0-12)
[2025-01-14 17:22] LABS: Anisocytosis Slight; Platelet Estimate Decreased
[2025-01-15] VITALS (7 sets, daily range): BP systolic 101–138; BP diastolic 51–80; PULSE 97–119; RESP 16–20; TEMP 97.3–99.1; O2SAT 93–98
--- NOTE | 2025-01-15 05:18 | DVH ---
EXAM: XR Chest, 1 View CLINICAL INDICATION: ESRD TECHNIQUE: Frontal view of the chest. COMPARISON: XY CHEST PORTABLE on DOS: 01/13/25, XY CHEST PORTABLE on DOS: 03/05/24 FINDINGS: LUNGS AND PLEURAL SPACES: Pulmonary congestion and edema. Pneumonia cannot be excluded. Bilateral pleural effusions. No pneumothorax. HEART: Unremarkable. No cardiomegaly. MEDIASTINUM: Unremarkable. Normal mediastinal contour. BONES/JOINTS: Unremarkable. No acute fracture. TUBES, LINES AND DEVICES: Right internal jugular central venous catheter tip in the superior vena c rob. OTHER FINDINGS: . None. IMPRESSION: 1. Pulmonary congestion and edema. Pneumonia cannot be excluded. 2. Bilateral pleural effusions.
[2025-01-15 05:49] LABS: Hemoglobin 8.9 g/dL (12.2-16.2); Mean Corpuscular Hemoglobin 25.7 pg (28.0-32.0); Red Blood Cells 3.47 10^6/uL (4.0-5.20)
[2025-01-15 05:54] LABS: Hematocrit 27.6 % (36.0-46.0); Mean Corpuscular Hgb Conc. 32.3 g/dL (32.0-36.0); Mean Corpuscular Volume 79.7 fL (80.0-100.0); Platelet Count (auto) 56 10^3/uL (140-450); Red Cell Distribution Width 19.7 % (11.8-14.3); White Blood Cell 9.2 10^3/uL (4.4-10.8)
[2025-01-15 06:02] LABS: Band Neutrophils % (manual) 0; Basophils % (manual) 0 (0.0-2.0); Blast Cells 0; Metamyelocytes % 0; Myelocytes % 0; Promyelocytes % 0; Reactive Lymphocytes 0
[2025-01-15 06:10] LABS: INR 1.25 (0.9-1.15); Partial Thromboplastin Time 43.1 SEC (24.5-34.5)
[2025-01-15 06:11] LABS: Alkaline Phosphatase 87 U/L (46-116); Anion Gap 6 (5-15); Aspartate Aminotransferase 15 U/L (13-40); BUN/Creatinine Ratio 8.1 (10.0-20.0); Blood Urea Nitrogen 19 mg/dL (9-23); Magnesium 1.9 mg/dL (1.6-2.6); Potassium 3.9 mmol/L (3.5-5.1); Sodium 136 mmol/L (136-145)
[2025-01-15 06:12] LABS: Bilirubin, Total 0.7 mg/dL (0.2-1.0)
[2025-01-15 06:21] LABS: Alanine Aminotransferase < 9 U/L (7-40); Albumin 2.5 g/dL (3.2-4.8); Carbon Dioxide 34 mmol/L (20-31); Chloride 96 mmol/L (98-107); Glucose 117 mg/dL (74-106); Total Protein 4.3 g/dL (5.7-8.2)
[2025-01-15 07:05] LABS: Triglycerides 98 mg/dL (< 150)
[2025-01-15 07:06] LABS: LDL Cholesterol 31 mg/dL (< 100)
[2025-01-15 07:07] LABS: Cholesterol 80 mg/dL (< 200)
[2025-01-15 07:16] LABS: HDL Cholesterol 17 mg/dL (40-59)
[2025-01-15 07:40] LABS: Eosinophils % (manual) 1 (0-7); Lymphocytes % (manual) 11 (10.0-50.0); Monocytes % (manual) 1 (0-12); Platelet Estimate Decreased
--- NOTE | 2025-01-15 11:31 | DVHPN2 ---
Progress Note Date Seen: Jan 15, 2025 Medical Necessity Reason Pt with a Central, PICC or Fol: No Subjective Patient reports: No new complaints Review of Systems: HEENT:Normal, CVS:Normal, RESPIRATORY:Normal, GI:Normal, :Normal, MSK:Normal, NEURO:Normal Objective vital signs Vital Sign Date Time Temp Pulse Resp B/P (MAP) Pulse Ox O2 Delivery O2 Flow Rate FiO2 01/15/25 08:00 Room Air* 0 21 01/15/25 05:00 97.7 109 17 110/68 (82) 95 97.7 Total Intake and Output 01/14/25 01/14/25 01/15/25 15:00 23:00 07:00 Intake Total 350 ml 0 ml 0 ml Output Total 60 ml Balance 350 ml -60 ml 0 ml medications Current Medications Medications Dose Ordered Sig/Yani Route Start Time Stop Time Status Last Admin Dose Admin Nitroglycerin 0.4 mg Q5MINP PRN SL 01/14/25 02:15 Morphine Sulfate 2 mg Q30M PRN IV 01/14/25 02:15 Tacrolimus 4 mg BID PO 01/14/25 10:00 01/15/25 10:13 4 MG Pantoprazole Sodium 40 mg DAILY IV 01/14/25 10:00 01/15/25 10:11 40 MG Patient Own Medication 10 DAILY PO 01/14/25 10:00 Fluconazole 100 mg DAILY PO 01/14/25 10:00 01/15/25 10:12 100 MG Mycophenolate Mofetil 250 mg Q12H PO 01/14/25 09:00 01/15/25 10:13 250 MG Diagnostic Test (Pha) 1 strip ACHS 01/14/25 17:00 01/15/25 06:24 1 STRIP Insulin Human Regular ACHS SC 01/14/25 17:00 01/14/25 21:17 2 UNITS Dextrose 50 ml UD PRN IV 01/14/25 14:00 Patient Own Medication 200 BID PO 01/15/25 10:00 Hold Examination: GENERAL:Normal, HEENT:Normal, NECK:Normal, LUNGS:Normal, LUNGS:Abnormal (on oxygen), CVS:Normal, ABDOMEN:Normal, MSK:Normal, SKIN:Normal, NEURO:Normal, :Normal laboratory and microbiology Laboratory Tests 01/15/25 05:25 Test 01/15/25 05:25 Range/Units Serum Glucose 117 H 74-106 mg/dL Microbiology Date/Time Source Procedure Growth Status 01/14/25 03:06 Stool Stool Culture - Preliminary Resulted 01/14/25 03:06 Stool Shiga Toxin I & II - Final Resulted 01/14/25 03:06 Stool Clostridium difficile Toxin Assay - Final Resulted 01/14/25 02:45 Nose MRSA Screen - Final Complete 01/14/25 01:10 Blood Blood Culture - Preliminary NO GROWTH AFTER 24 HOURS OF INCUBATION. Resulted Problem List/Assessment/Plan Problem List/Assessment/Plan #1 hypoglycemia: ssi #2 anemia s/p transfusion: check cbc #3 thrombocytopenia #4 s/p liver txp #5 esrd on dialysis #6 acute diastolic heart failure: dialysis #7 dm #8 h/o recent c diff infection #9 acute resp failure: on oxygen advance care planning- full code- time spent 19 mins Plan discussed with: Patient, Daughter My Orders My Orders Orders - VIKI HUFF MD Procedure Category Date Status Time Chest Portable XY 01/15/25 Resulted 06:00 Pt Request For Service PT 01/14/25 Logged 13:40 Glucose Blood PHA 01/14/25 In Process (Accu-Chek Comfort 17:00 Insulin R (Human) PHA 01/14/25 In Process (Insulin R) 17:00 Dextrose 50% Syringe PHA 01/14/25 In Process 14:00 Date of Service: Jan 15, 2025 Billing Provider: VIKI HUFF MD Common Visit Codes: [id number] INP/OBS CARE(HIGH) Secondary Visit Codes: [id number] CARE PLAN 30 MINUTES CC Plasma Assessment Blood Product Administration S: [id number] VIKI HUFF MD Jan 15, 2025 11:31
[2025-01-15] MEDS: FUROSEMIDE 100 MG/10ML VIAL IV ONE ×2 (13:12→18:45)
--- NOTE | 2025-01-15 17:14 | MEDREC ---
[facility] ASP Intervention Section I [facility] ASP Intervention: Review courses of therapy (PLEASE CONSIDER ANTIBIOTIC TO COVER FOR THE GRAM NEGATIVE RODS IN THE BLOOD CULTURE) ELAINE LINDSAY PHARMACIST Jan 15, 2025 17:14
[2025-01-15] MEDS: MEROPENEM 1GM IVPB 50 ML IV ONE (17:30)
--- NOTE | 2025-01-15 17:50 | DVHPN2 ---
Progress Note - Dictate Date Seen: Jan 15, 2025 Medical Necessity Reason Pt with a Central, PICC or Fol: No Subjective Blood cx with gram negative rods Shortness of breath . CXR from today morning reviewed vital signs Vital Sign Date Time Temp Pulse Resp B/P (MAP) Pulse Ox O2 Delivery O2 Flow Rate FiO2 01/15/25 16:37 99.1 111 18 138/75 (96) 93 99.1 01/15/25 08:00 Room Air* 0 21 Total Intake and Output 01/14/25 01/14/25 01/15/25 15:00 23:00 07:00 Intake Total 350 ml 0 ml 0 ml Output Total 60 ml Balance 350 ml -60 ml 0 ml medications Current Medications Medications Dose Ordered Sig/Yani Route Start Time Stop Time Status Last Admin Dose Admin Nitroglycerin 0.4 mg Q5MINP PRN SL 01/14/25 02:15 Morphine Sulfate 2 mg Q30M PRN IV 01/14/25 02:15 Tacrolimus 4 mg BID PO 01/14/25 10:00 01/15/25 10:13 4 MG Patient Own Medication 10 DAILY PO 01/14/25 10:00 Fluconazole 100 mg DAILY PO 01/14/25 10:00 01/15/25 10:12 100 MG Mycophenolate Mofetil 250 mg Q12H PO 01/14/25 09:00 01/15/25 10:13 250 MG Diagnostic Test (Pha) 1 strip ACHS 01/14/25 17:00 01/15/25 13:13 1 STRIP Insulin Human Regular ACHS SC 01/14/25 17:00 01/15/25 13:52 3 UNITS Dextrose 50 ml UD PRN IV 01/14/25 14:00 Patient Own Medication 200 BID PO 01/15/25 10:00 Hold Pantoprazole Sodium 40 mg DAILY@0600 PO 01/16/25 06:00 Furosemide 60 mg DAILY IV 01/16/25 10:00 Meropenem 50 ml @ 17 mls/hr Q8H IV 01/16/25 02:00 objective General Appearance: Alert, Oriented X3, Cooperative, mild distress HEENT: Atraumatic, PERRLA, EOMI, Mucous membr. moist/pink Respiratory: Diminished breath sounds at bases Cardiovascular: Regular rate, Normal S1, Normal S2 Abdominal: Normal bowel sounds, Soft Extremities: No clubbing, No cyanosis, No edema Skin: No rashes Neuro: Normal gait, Normal speech, Strength at 5/5 X4 ext Psych/Mental Status: Mental status NL, Mood NL laboratory and microbiology Laboratory Tests 01/15/25 05:25 Test 01/15/25 05:25 Range/Units Serum Glucose 117 H 74-106 mg/dL Problem List End-stage kidney disease on hemodialysis Bacteremia Anemia Bilateral Pneumonia Thrombocytopenia History of liver transplant Hypoglycemia Assessment/Plan IV antibiotics Patient on Meropenem Lasix 60 mg IV X 1 HD tomorrow continue cellcept and Tacrolimus Plan discussed with: Patient CC Plasma Assessment Blood Product Administration S: [id number] CORBIN SAVAGE MD Jan 15, 2025 17:50
[2025-01-16] VITALS (9 sets, daily range): BP systolic 114–149; BP diastolic 62–85; PULSE 75–118; RESP 16–21; TEMP 97.4–99.7; O2SAT 93–98
[2025-01-16] MEDS: MEROPENEM 1GM IVPB 50 ML IV SCH ×2 (02:20→21:58)
[2025-01-16] MEDS: PANTOPRAZOLE 40 MG TAB PO SCH (06:11)
[2025-01-16 06:35] LABS: Basophils # (auto) 0.1 10 ^3/uL (0-0.2); Eosinophils # (auto) 0.1 10 ^3/uL (0-0.8); Hemoglobin 8.7 g/dL (12.2-16.2); Lymphocytes # (auto) 0.7 10 ^3/uL (0.4-5.4); Platelet Count (auto) 49 10^3/uL (140-450); White Blood Cell 10.2 10^3/uL (4.4-10.8)
[2025-01-16 06:38] LABS: Basophils % (auto) 1.2 % (0.0-2.0); Eosinophils % (auto) 1.2 % (0.0-7.0); Hematocrit 27.2 % (36.0-46.0); Lymphocytes % (auto) 7.2 % (10.0-50.0); Mean Corpuscular Hemoglobin 25.6 pg (28.0-32.0); Monocytes # (auto) 0.3 10 ^3/uL (0-1.3); Monocytes % (auto) 2.7 % (0.0-12.0); Neutrophils % (auto) 87.7 % (37.0-80.0); Red Cell Distribution Width 20.1 % (11.8-14.3)
[2025-01-16 06:47] LABS: Anion Gap 6 (5-15); Potassium 4.1 mmol/L (3.5-5.1); Sodium 137 mmol/L (136-145)
[2025-01-16 06:54] LABS: BUN/Creatinine Ratio 8.4 (10.0-20.0)
[2025-01-16 06:58] LABS: Blood Urea Nitrogen 23 mg/dL (9-23); Calcium 7.9 mg/dL (8.7-10.4); Carbon Dioxide 33 mmol/L (20-31); Chloride 98 mmol/L (98-107); Glucose 137 mg/dL (74-106)
[2025-01-16] MEDS: SODIUM CHL 0.9% 1000 ML BAG XX ONE (07:00)
[2025-01-16] MEDS: FUROSEMIDE 100 MG/10ML VIAL IV SCH (10:02)
--- NOTE | 2025-01-16 11:09 | DVHPN2 ---
Progress Note - Dictate Date Seen: Jan 16, 2025 Medical Necessity Reason Pt with a Central, PICC or Fol: No Subjective Blood cx with gram negative rods continues to be short of breath vital signs Vital Sign Date Time Temp Pulse Resp B/P (MAP) Pulse Ox O2 Delivery O2 Flow Rate FiO2 01/16/25 10:02 138/81 01/16/25 05:00 97.4 110 20 98 97.4 01/15/25 20:00 Nasal Cannula* 2 28 Total Intake and Output 01/15/25 01/15/25 01/16/25 15:00 23:00 07:00 Intake Total 240 ml 454 ml 470 ml Balance 240 ml 454 ml 470 ml medications Current Medications Medications Dose Ordered Sig/Yani Route Start Time Stop Time Status Last Admin Dose Admin Nitroglycerin 0.4 mg Q5MINP PRN SL 01/14/25 02:15 Morphine Sulfate 2 mg Q30M PRN IV 01/14/25 02:15 Tacrolimus 4 mg BID PO 01/14/25 10:00 01/16/25 10:00 4 MG Patient Own Medication 10 DAILY PO 01/14/25 10:00 01/16/25 10:05 10 Fluconazole 100 mg DAILY PO 01/14/25 10:00 01/16/25 09:54 100 MG Mycophenolate Mofetil 250 mg Q12H PO 01/14/25 09:00 01/16/25 09:00 250 MG Diagnostic Test (Pha) 1 strip ACHS 01/14/25 17:00 01/16/25 06:21 1 STRIP Insulin Human Regular ACHS SC 01/14/25 17:00 01/15/25 18:38 3 UNITS Dextrose 50 ml UD PRN IV 01/14/25 14:00 Patient Own Medication 200 BID PO 01/15/25 10:00 Hold Pantoprazole Sodium 40 mg DAILY@0600 PO 01/16/25 06:00 01/16/25 06:11 40 MG Furosemide 60 mg DAILY IV 01/16/25 10:00 01/16/25 10:02 60 MG Meropenem 50 ml @ 17 mls/hr Q12H IV 01/16/25 22:00 objective General Appearance: Alert, Oriented X3, Cooperative, mild distress HEENT: Atraumatic, PERRLA, EOMI, Mucous membr. moist/pink Respiratory: Diminished breath sounds at bases Cardiovascular: Regular rate, Normal S1, Normal S2 Abdominal: Normal bowel sounds, Soft Extremities: No clubbing, No cyanosis, No edema Skin: No rashes Neuro: Normal gait, Normal speech, Strength at 5/5 X4 ext Psych/Mental Status: Mental status NL, Mood NL laboratory and microbiology Laboratory Tests 01/16/25 05:50 Test 01/16/25 05:50 Range/Units Serum Glucose 137 H 74-106 mg/dL Problem List End-stage kidney disease on hemodialysis Bacteremia with gram negative rods Anemia Bilateral Pneumonia Thrombocytopenia History of liver transplant Hypoglycemia Assessment/Plan IV antibiotics Patient on Meropenem Lasix 60 mg IV daily HD today continue cellcept and Tacrolimus Epo with HD Plan discussed with: Patient, Daughter CC Plasma Assessment Blood Product Administration S: [id number] CORBIN SAVAGE MD Jan 16, 2025 11:09
--- NOTE | 2025-01-16 15:59 | DVHPN2 ---
Progress Note Date Seen: Jan 16, 2025 Medical Necessity Reason Pt with a Central, PICC or Fol: No Subjective Patient reports: No new complaints Review of Systems: HEENT:Normal, CVS:Normal, RESPIRATORY:Normal, GI:Normal, :Normal, MSK:Normal, NEURO:Normal Objective vital signs Vital Sign Date Time Temp Pulse Resp B/P (MAP) Pulse Ox O2 Delivery O2 Flow Rate FiO2 01/16/25 13:00 97.6 75 16 122/72 (89) 98 97.6 01/16/25 08:10 Nasal Cannula* 2 28 Total Intake and Output 01/15/25 01/15/25 01/16/25 15:00 23:00 07:00 Intake Total 240 ml 454 ml 470 ml Balance 240 ml 454 ml 470 ml medications Current Medications Medications Dose Ordered Sig/Yani Route Start Time Stop Time Status Last Admin Dose Admin Nitroglycerin 0.4 mg Q5MINP PRN SL 01/14/25 02:15 Morphine Sulfate 2 mg Q30M PRN IV 01/14/25 02:15 Tacrolimus 4 mg BID PO 01/14/25 10:00 01/16/25 10:00 4 MG Patient Own Medication 10 DAILY PO 01/14/25 10:00 01/16/25 10:05 10 Fluconazole 100 mg DAILY PO 01/14/25 10:00 01/16/25 09:54 100 MG Mycophenolate Mofetil 250 mg Q12H PO 01/14/25 09:00 01/16/25 09:00 250 MG Diagnostic Test (Pha) 1 strip ACHS 01/14/25 17:00 01/16/25 11:16 1 STRIP Insulin Human Regular ACHS SC 01/14/25 17:00 01/16/25 11:15 2 UNITS Dextrose 50 ml UD PRN IV 01/14/25 14:00 Patient Own Medication 200 BID PO 01/15/25 10:00 Hold Pantoprazole Sodium 40 mg DAILY@0600 PO 01/16/25 06:00 01/16/25 06:11 40 MG Furosemide 60 mg DAILY IV 01/16/25 10:00 01/16/25 10:02 60 MG Meropenem 50 ml @ 17 mls/hr Q12H IV 01/16/25 22:00 Examination: GENERAL:Normal, HEENT:Normal, NECK:Normal, LUNGS:Normal, LUNGS:Abnormal (on oxygen), CVS:Normal, ABDOMEN:Normal, MSK:Normal, SKIN:Normal, NEURO:Normal, :Normal laboratory and microbiology Laboratory Tests 01/16/25 05:50 Test 01/16/25 05:50 Range/Units Serum Glucose 137 H 74-106 mg/dL Microbiology Date/Time Source Procedure Growth Status 01/15/25 01:44 Nose MRSA Screen - Final Complete 01/14/25 03:06 Stool Stool Culture - Final Complete 01/14/25 03:06 Stool Shiga Toxin I & II - Final Complete 01/14/25 03:06 Stool Clostridium difficile Toxin Assay - Final Complete 01/14/25 01:10 Blood Blood Culture - Preliminary NO GROWTH AFTER 48 HOURS OF INCUBATION. Resulted Problem List/Assessment/Plan Problem List/Assessment/Plan #1 hypoglycemia: ssi #2 anemia s/p transfusion: check cbc #3 thrombocytopenia #4 s/p liver txp #5 esrd on dialysis #6 acute diastolic heart failure: dialysis today #7 dm #8 h/o recent c diff infection #9 acute resp failure: on oxygen #10 sepsis with gram neg rods: iv meropnem, ua, culture advance care planning- full code- time spent 19 mins Plan discussed with: Patient, Daughter My Orders My Orders Orders - VIKI HUFF MD Procedure Category Date Status Time Meropenem 1gm Ivpb PHA 01/16/25 In Process (Merrem 1gm/ Ns) 22:00 Date of Service: Jan 16, 2025 Billing Provider: VIKI HUFF MD Common Visit Codes: [id number] INP/OBS CARE(HIGH) CC Plasma Assessment Blood Product Administration S: [id number] VIKI HUFF MD Jan 16, 2025 15:58
--- NOTE | 2025-01-16 16:01 | DVHDS2 ---
Discharge Summary Date of Admission Jan 14, 2025 at 02:07 Date of Discharge: Jan 16, 2025 Labs/Diagnostic Data: Laboratory Results Test 01/16/25 11:10 01/16/25 05:50 01/15/25 05:25 01/14/25 16:11 POC Glucose 156 mg/dl (70-106) White Blood Count 10.2 10^3/uL (4.4-10.8) Red Blood Count 3.40 10^6/uL (4.0-5.20) Hemoglobin 8.7 g/dL (12.2-16.2) Hematocrit 27.2 % (36.0-46.0) Mean Corpuscular Volume 80.0 fL (80.0-100.0) Mean Corpuscular Hemoglobin 25.6 pg (28.0-32.0) Mean Corpuscular Hemoglobin Concent 32.0 g/dL (32.0-36.0) Red Cell Distribution Width 20.1 % (11.8-14.3) Platelet Count 49 10^3/uL (140-450) Mean Platelet Volume 8.0 fL (6.9-10.8) Neutrophils (%) (Auto) 87.7 % (37.0-80.0) Lymphocytes (%) (Auto) 7.2 % (10.0-50.0) Monocytes (%) (Auto) 2.7 % (0.0-12.0) Eosinophils (%) (Auto) 1.2 % (0.0-7.0) Basophils (%) (Auto) 1.2 % (0.0-2.0) Neutrophils # (Auto) 9.0 10 ^3/uL (1.6-8.6) Lymphocytes # (Auto) 0.7 10 ^3/uL (0.4-5.4) Monocytes # (Auto) 0.3 10 ^3/uL (0-1.3) Eosinophils # (Auto) 0.1 10 ^3/uL (0-0.8) Basophils # (Auto) 0.1 10 ^3/uL (0-0.2) Nucleated Red Blood Cells 0.0 % Sodium Level 137 mmol/L (136-145) Potassium Level 4.1 mmol/L (3.5-5.1) Chloride Level 98 mmol/L (98-107) Carbon Dioxide Level 33 mmol/L (20-31) Anion Gap 6 (5-15) Blood Urea Nitrogen 23 mg/dL (9-23) Creatinine 2.75 mg/dL (0.550-1.02) Glomerular Filtration Rate Calc 20 mL/min (>90) BUN/Creatinine Ratio 8.4 (10.0-20.0) Serum Glucose 137 mg/dL (74-106) Calcium Level 7.9 mg/dL (8.7-10.4) Differential Total Cells Counted 100.0 (100) Neutrophils % (Manual) 87 (37.0-80.0) Band Neutrophils % (Manual) 0 Lymphocytes % (Manual) 11 (10.0-50.0) Monocytes % (Manual) 1 (0-12) Eosinophils % (Manual) 1 (0-7) Basophils % (Manual) 0 (0.0-2.0) Metamyelocytes % (manual) 0 Myelocytes % (Manual) 0 Promyelocytes % (Manual) 0 Blast Cells % (Manual) 0 Reactive Lymphocytes 0 Platelet Estimate Decreased Prothrombin Time 13.0 sec (9.3-11.8) Prothrombin Time INR 1.25 (0.9-1.15) Activated Partial Thromboplast Time 43.1 SEC (24.5-34.5) Hemoglobin A1c 4.9 % A1C (<5.7) Lactic Acid Level 0.9 mmol/L (0.4-2.0) Phosphorus Level 3.0 mg/dL (2.4-5.1) Magnesium Level 1.9 mg/dL (1.6-2.6) Total Bilirubin 0.7 mg/dL (0.2-1.0) Aspartate Amino Transferase (AST) 15 U/L (13-40) Alanine Aminotransferase (ALT) < 9 U/L (7-40) Alkaline Phosphatase 87 U/L (46-116) Total Protein 4.3 g/dL (5.7-8.2) Albumin 2.5 g/dL (3.2-4.8) Triglycerides Level 98 mg/dL (< 150) Cholesterol Level 80 mg/dL (< 200) LDL Cholesterol 31 mg/dL (< 100) HDL Cholesterol 17 mg/dL (40-59) Vitamin B12 Level 6573 pg/mL (211-911) Vitamin D 25-Hydroxy 27.9 ng/mL (30.0-100) Thyroid Stimulating Hormone (TSH) 3.31 uIU/mL (0.55-4.78) Poikilocytosis (manual) Slight Anisocytosis (manual) Slight Schistocytes Few Test 01/14/25 09:54 01/14/25 03:06 01/14/25 02:45 01/13/25 23:11 Haptoglobin 221 mg/dL (33-346) Iron Level 28 ug/dL (50-170) Total Iron Binding Capacity 137 ug/dL (250-425) Percent Iron Saturation 20.4 % (15-50) Erythropoietin 247.6 mIU/mL (2.6-18.5) Ferritin 2835.2 ng/mL (10-291) Stool Occult Blood Negative (Negative) Stool Occult Blood Sample #3 (Negative) Stool for White Cells None seen Influenza Type A Antigen Negative (Negative) Influenza Type B Antigen Negative (Negative) SARS-CoV-2 Antigen (Rapid) Negative (NEGATIVE) Troponin I High Sensitivity < 3 ng/L (</=34) Test 01/13/25 22:20 Hypochromasia (manual) Moderate Microcytosis Slight Stomatocytes Few B-Type Natriuretic Peptide 233.77 pg/mL (0-100) Other Laboratory Tests 01/16/25 05:50 Brief Hx & Hospital Course: see dictated note Condition at Discharge: Fair Final Diagnosis/Problems List liver txp Discharge Disposition: Acute Care Facility Discharge Instruct/Medications Diet: Renal Activity: No Restrictions, As Tolerated Follow Up/Referral: fu with pcp/[facility] Medications: per jan Discharge Statement: "Patient was advised to return to the ER or call 911 if any headaches, dizziness, shortness of breath, chest pain, abdominal pain, bleeding, fevers, or worsening of medical condition. Patient was counseled about treatment plan, medications, possible side effects, patientverbalized understanding. All questions were answered to the best of my ability. This discharge took greater then 30 minutes in planning, reviewing documentation, counseling the patient, and discussing with other team members." ASSESSMENT ASSESSMENT Assessment liver txp Date of Service: Jan 16, 2025 Billing Provider: VIKI HUFF MD Common Visit Codes: [id number] DISCH DAY >30min VIKI HUFF MD Jan 16, 2025 16:01
--- NOTE | 2025-01-16 16:54 | DVHDS ---
DATE OF DISCHARGE: 01/16/2025 HISTORY OF PRESENT ILLNESS: The patient is a 59-year-old lady who was admitted with hypoglycemia and generalized weakness. The patient has a history of liver transplant done at [facility] for metabolic liver disease as well as diabetes and end-stage renal disease on hemodialysis. HOSPITAL COURSE: The patient was noted to be anemic with a hemoglobin of 5.7 and was transfused 2 units of blood. The patient was seen in Nephrology consult by Dr. Logan. The patient was noted to be thrombocytopenic. The patient had a chest x-ray that showed evidence of right lower lobe infiltrate with pleural effusion. The patient's blood cultures grew gram-negative rods, identification is pending. C. diff has been negative. The patient will now be transferred to [facility] for further management under likely her transplant service. The patient had echocardiogram that showed ejection fraction of 60%. FINAL DIAGNOSES: Therefore, * Sepsis with gram-negative rods. * Status post liver transplant for metabolic liver dysfunction. * Anemia, status post transfusion. * Hypoglycemia with encephalopathy. * Thrombocytopenia. * End-stage renal disease, on hemodialysis. * Acute diastolic heart failure. * Diabetes mellitus. * Acute respiratory failure. * History of recent C. diff infection. * History of left ankle injury. Time spent in discharge planning and review of plan with the patient's family and nursing was 39 minutes. MD ELENA Boles/MARCIAL TID: [id number] RECEIPT: [id number]
[2025-01-16] MEDS: EPOETIN ALFA-EPBX 4,000 UNIT/ML VIAL SC ONE (21:00)
[2025-01-17] VITALS (8 sets, daily range): BP systolic 104–157; BP diastolic 56–81; PULSE 94–118; RESP 16–21; TEMP 97.4–98.4; O2SAT 95–99
--- NOTE | 2025-01-17 05:29 | DVH ---
EXAM: XR Chest, 1 View CLINICAL INDICATION: chf TECHNIQUE: Frontal view of the chest. COMPARISON: XY CHEST PORTABLE on DOS: 01/15/25, XY CHEST PORTABLE on DOS: 01/13/25, XY CHEST PORTABLE on DOS: 03/05/24 FINDINGS: LUNGS AND PLEURAL SPACES: Bilateral pleural effusions. HEART: Cardiomegaly with mild congestion. MEDIASTINUM: Unremarkable. Normal mediastinal contour. BONES/JOINTS: Unremarkable. No acute fracture. TUBES, LINES AND DEVICES: Right internal jugular central venous catheter tip in the superior vena c rob. OTHER FINDINGS: . None. ... IMPRESSION: 1. Cardiomegaly with mild congestion. 2. Bilateral pleural effusions.
[2025-01-17 06:17] LABS: Platelet Count (auto) 46 10^3/uL (140-450)
[2025-01-17 06:19] LABS: Hematocrit 23.4 % (36.0-46.0); Hemoglobin 7.6 g/dL (12.2-16.2); Mean Corpuscular Hemoglobin 25.8 pg (28.0-32.0); Mean Corpuscular Hgb Conc. 32.7 g/dL (32.0-36.0); Mean Corpuscular Volume 78.9 fL (80.0-100.0); Red Blood Cells 2.96 10^6/uL (4.0-5.20); White Blood Cell 8.7 10^3/uL (4.4-10.8)
[2025-01-17 06:21] LABS: Alkaline Phosphatase 90 U/L (46-116); Anion Gap 6 (5-15); Aspartate Aminotransferase 13 U/L (13-40); BUN/Creatinine Ratio 10.5 (10.0-20.0); Bilirubin, Total 0.6 mg/dL (0.2-1.0); Potassium 4.3 mmol/L (3.5-5.1); Sodium 137 mmol/L (136-145)
[2025-01-17 06:22] LABS: Alanine Aminotransferase < 9 U/L (7-40); Albumin 2.4 g/dL (3.2-4.8); Blood Urea Nitrogen 30 mg/dL (9-23); Calcium 8.2 mg/dL (8.7-10.4); Carbon Dioxide 34 mmol/L (20-31); Chloride 97 mmol/L (98-107); Glucose 136 mg/dL (74-106); Total Protein 4.3 g/dL (5.7-8.2)
[2025-01-17 06:41] LABS: Band Neutrophils % (manual) 0; Basophils % (manual) 0 (0.0-2.0); Blast Cells 0; Metamyelocytes % 0; Myelocytes % 0; Promyelocytes % 0; Reactive Lymphocytes 0
[2025-01-17 07:01] LABS: Eosinophils % (manual) 1 (0-7); Lymphocytes % (manual) 9 (10.0-50.0); Monocytes % (manual) 4 (0-12)
[2025-01-17 07:02] LABS: Platelet Estimate Decreased
[2025-01-17] MEDS: ALBUMIN 25% 100 ML IV PRN (15:22)
[2025-01-17] MEDS: MIDODRINE HCL 10 MG TAB PO STA (16:52)
--- NOTE | 2025-01-17 20:13 | DVHPN2 ---
Subjective in bed resting Changes from previous H/P or p: No Changes Eyes: No Pain, No Vision change, No Conjunctivae inflammation, No Eyelid inflammation, No Other, No Redness ENT: No Ear pain, No Ear discharge, No Nose pain, No Nose discharge, No Nose congestion, No Mouth pain, No Mouth swelling, No Throat pain, No Throat swelling, No Other Cardiovascular: No Chest Pain, No Palpitations, No Orthopnea, No Paroxysmal Noc. Dyspnea, No Edema, No Lt Headedness, No Other Respiratory: No Cough, No Dry, No Shortness of breath, No SOB with excertion, No Wheezing, No Hemoptysis, No Pleuritic Pain, No Sputum, No Other Gastrointestinal: No Nausea, No Vomiting, No Abdominal Pain, No Diarrhea, No Constipation, No Melena, No Hematochezia, No Other Genitourinary: No Dysuria, No Frequency, No Incontinence, No Hematuria, No Retention, No Other Skin: No Rash, No Lesions, No Jaundice, No Bruising, No Other Objective Vitals Vital Signs Date Time Temp Pulse Resp B/P (MAP) Pulse Ox O2 Delivery O2 Flow Rate FiO2 01/17/25 16:45 97.9 99 16 106/56 (73) 98 97.9 01/17/25 08:10 Nasal Cannula* 2 28 Intake/Output Intake and Output 01/17/25 07:00 Intake Total 820 ml Balance 820 ml Intake Oral 720 ml IV Total 100 ml # Voids 3 # Bowel Movements 1 General Appearance: Alert Lungs: Clear to auscultation Cardiovascular: Regular rate Medications Current Medications Medications Dose Ordered Sig/Yani Route Start Time Stop Time Status Last Admin Dose Admin Nitroglycerin 0.4 mg Q5MINP PRN SL 01/14/25 02:15 Morphine Sulfate 2 mg Q30M PRN IV 01/14/25 02:15 Tacrolimus 4 mg BID PO 01/14/25 10:00 01/17/25 10:41 4 MG Patient Own Medication 10 DAILY PO 01/14/25 10:00 01/17/25 10:00 10 Fluconazole 100 mg DAILY PO 01/14/25 10:00 01/17/25 10:41 100 MG Mycophenolate Mofetil 250 mg Q12H PO 01/14/25 09:00 01/17/25 09:00 250 MG Diagnostic Test (Pha) 1 strip ACHS 01/14/25 17:00 01/17/25 17:20 1 STRIP Insulin Human Regular ACHS SC 01/14/25 17:00 01/17/25 11:25 2 UNITS Dextrose 50 ml UD PRN IV 01/14/25 14:00 Patient Own Medication 200 BID PO 01/15/25 10:00 Hold Pantoprazole Sodium 40 mg DAILY@0600 PO 01/16/25 06:00 01/17/25 05:40 40 MG Furosemide 60 mg DAILY IV 01/16/25 10:00 01/17/25 10:42 60 MG Meropenem 50 ml @ 17 mls/hr Q12H IV 01/16/25 22:00 01/17/25 10:42 17 MLS/HR Laboratory Results Laboratory Tests 01/17/25 05:21 Chemistry Test 01/17/25 05:21 Albumin 2.4 g/dL (3.2-4.8) L Calcium Level 8.2 mg/dL (8.7-10.4) L Total Protein 4.3 g/dL (5.7-8.2) L LFT Test 01/17/25 05:21 Alanine Aminotransferase (ALT) < 9 U/L (7-40) Alkaline Phosphatase 90 U/L (46-116) Aspartate Amino Transferase (AST) 13 U/L (13-40) Total Bilirubin 0.6 mg/dL (0.2-1.0) Microbiology Microbiology Date/Time Source Procedure Growth Status 01/15/25 01:44 Nose MRSA Screen - Final Complete 01/14/25 03:06 Stool Stool Culture - Final Complete 01/14/25 03:06 Stool Shiga Toxin I & II - Final Complete 01/14/25 03:06 Stool Clostridium difficile Toxin Assay - Final Complete 01/14/25 01:10 Blood Blood Culture - Preliminary NO GROWTH AFTER 72 HOURS OF INCUBATION. Resulted Assessment/Plan Assessment/Plan #1 hypoglycemia: ssi #2 anemia s/p transfusion: check cbc #3 thrombocytopenia #4 s/p liver txp #5 esrd on dialysis #6 acute diastolic heart failure: dialysis today #7 dm #8 h/o recent c diff infection #9 acute resp failure: on oxygen #10 sepsis with gram neg rods: iv meropnem, ua, culture advance care planning- full code- time spent 19 mins Plan discussed with: Patient, Daughter Plan discussed with: Patient Date of Service: Jan 17, 2025 Billing Provider: LINDA BLACKWELL MD Common Visit Codes: [id number] INP/OBS CARE(HIGH) LINDA BLACKWELL MD Jan 17, 2025 20:13
--- NOTE | 2025-01-17 20:14 | DVHPN2 ---
Progress Note - Dictate Date Seen: Jan 17, 2025 Medical Necessity Reason Pt with a Central, PICC or Fol: No Subjective Patient seen in AM . Resting . Not dialysed yesterday vital signs Vital Sign Date Time Temp Pulse Resp B/P (MAP) Pulse Ox O2 Delivery O2 Flow Rate FiO2 01/17/25 16:45 97.9 99 16 106/56 (73) 98 97.9 01/17/25 08:10 Nasal Cannula* 2 28 Total Intake and Output 01/16/25 01/16/25 01/17/25 15:00 23:00 07:00 Intake Total 650 ml 170 ml Balance 650 ml 170 ml medications Current Medications Medications Dose Ordered Sig/Yani Route Start Time Stop Time Status Last Admin Dose Admin Nitroglycerin 0.4 mg Q5MINP PRN SL 01/14/25 02:15 Morphine Sulfate 2 mg Q30M PRN IV 01/14/25 02:15 Tacrolimus 4 mg BID PO 01/14/25 10:00 01/17/25 10:41 4 MG Patient Own Medication 10 DAILY PO 01/14/25 10:00 01/17/25 10:00 10 Fluconazole 100 mg DAILY PO 01/14/25 10:00 01/17/25 10:41 100 MG Mycophenolate Mofetil 250 mg Q12H PO 01/14/25 09:00 01/17/25 09:00 250 MG Diagnostic Test (Pha) 1 strip ACHS 01/14/25 17:00 01/17/25 17:20 1 STRIP Insulin Human Regular ACHS SC 01/14/25 17:00 01/17/25 11:25 2 UNITS Dextrose 50 ml UD PRN IV 01/14/25 14:00 Patient Own Medication 200 BID PO 01/15/25 10:00 Hold Pantoprazole Sodium 40 mg DAILY@0600 PO 01/16/25 06:00 01/17/25 05:40 40 MG Furosemide 60 mg DAILY IV 01/16/25 10:00 01/17/25 10:42 60 MG Meropenem 50 ml @ 17 mls/hr Q12H IV 01/16/25 22:00 01/17/25 10:42 17 MLS/HR objective General Appearance: Alert, Oriented X3, Cooperative, mild distress HEENT: Atraumatic, PERRLA, EOMI, Mucous membr. moist/pink Respiratory: Diminished breath sounds at bases Cardiovascular: Regular rate, Normal S1, Normal S2 Abdominal: Normal bowel sounds, Soft Extremities: No clubbing, No cyanosis, No edema Skin: No rashes Neuro: Normal gait, Normal speech, Strength at 5/5 X4 ext Psych/Mental Status: Mental status NL, Mood NL laboratory and microbiology Laboratory Tests 01/17/25 05:21 Test 01/17/25 05:21 Range/Units Serum Glucose 136 H 74-106 mg/dL Problem List End-stage kidney disease on hemodialysis Bacteremia with gram negative rods Anemia Bilateral Pneumonia Thrombocytopenia History of liver transplant Hypoglycemia Assessment/Plan IV antibiotics Patient on Meropenem Lasix 60 mg IV daily HD today continue cellcept and Tacrolimus Epo with HD Being transferred to [facility] Plan discussed with: Other CC Plasma Assessment Blood Product Administration S: [id number] CORBIN SAVAGE MD Jan 17, 2025 20:14
[2025-01-18] VITALS (8 sets, daily range): BP systolic 95–140; BP diastolic 53–82; PULSE 91–98; RESP 16–19; TEMP 97.6–98.8; O2SAT 94–100
[2025-01-18] MEDS ORDERED: MIDODRINE HCL 10 MG TAB PO PRN (17:30)
--- NOTE | 2025-01-18 17:34 | DVHPN2 ---
Progress Note - Dictate Date Seen: Jan 18, 2025 Medical Necessity Reason Pt with a Central, PICC or Fol: No Subjective Patient seen at bedside Increasing shortness of breath. Chest x-ray from yesterday noted that shows evidence of bilateral pleural effusion Awaiting transfer to [facility] vital signs Vital Sign Date Time Temp Pulse Resp B/P (MAP) Pulse Ox O2 Delivery O2 Flow Rate FiO2 01/18/25 16:36 98.3 97 17 140/82 (101) 97 98.3 01/18/25 08:00 Nasal Cannula* 2 28 Total Intake and Output 01/17/25 01/17/25 01/18/25 15:00 23:00 07:00 Intake Total 550 ml 550 ml Balance 550 ml 550 ml medications Current Medications Medications Dose Ordered Sig/Yani Route Start Time Stop Time Status Last Admin Dose Admin Nitroglycerin 0.4 mg Q5MINP PRN SL 01/14/25 02:15 Morphine Sulfate 2 mg Q30M PRN IV 01/14/25 02:15 Tacrolimus 4 mg BID PO 01/14/25 10:00 01/18/25 10:24 4 MG Patient Own Medication 10 DAILY PO 01/14/25 10:00 01/17/25 10:00 10 Fluconazole 100 mg DAILY PO 01/14/25 10:00 01/18/25 10:24 100 MG Mycophenolate Mofetil 250 mg Q12H PO 01/14/25 09:00 01/18/25 10:24 250 MG Diagnostic Test (Pha) 1 strip ACHS 01/14/25 17:00 01/18/25 16:58 1 STRIP Insulin Human Regular ACHS SC 01/14/25 17:00 01/17/25 23:03 2 UNITS Dextrose 50 ml UD PRN IV 01/14/25 14:00 Patient Own Medication 200 BID PO 01/15/25 10:00 Hold Pantoprazole Sodium 40 mg DAILY@0600 PO 01/16/25 06:00 01/18/25 05:59 40 MG Furosemide 60 mg DAILY IV 01/16/25 10:00 01/17/25 10:42 60 MG Meropenem 50 ml @ 17 mls/hr Q12H IV 01/16/25 22:00 01/18/25 10:23 17 MLS/HR objective General Appearance: Tachypneic HEENT: Atraumatic, PERRLA, EOMI, Mucous membr. moist/pink Respiratory: Diminished breath sounds at bases Cardiovascular: Regular rate, Normal S1, Normal S2 Abdominal: Normal bowel sounds, Soft Extremities: No clubbing, No cyanosis, No edema Skin: No rashes Neuro: Normal gait, Normal speech, Strength at 5/5 X4 ext Psych/Mental Status: Mental status NL, Mood NL laboratory and microbiology Laboratory Tests 01/17/25 05:21 Test 01/17/25 05:21 Range/Units Serum Glucose 136 H 74-106 mg/dL Problem List End-stage kidney disease on hemodialysis Bacteremia with gram negative rods [Kleibsiella] Anemia Bilateral Pneumonia Thrombocytopenia History of liver transplant Hypoglycemia bilateral pleural effusion Assessment/Plan Pulmonary evaluation Continue IV antibiotics Patient on Meropenem Lasix was held today because of hypotension. HD today . will give midodrine and albumin continue cellcept and Tacrolimus Epo with HD Being transferred to [facility] , awaiting bed Plan discussed with: Patient, Daughter CC Plasma Assessment Blood Product Administration S: [id number] CORBIN SAVAGE MD Jan 18, 2025 17:34
[2025-01-18] MEDS ORDERED: SODIUM CHL 0.9% 1000 ML BAG XX ONE (17:45)
[2025-01-18] MEDS: MIDODRINE HCL 10 MG TAB PO ONE (17:54)
--- NOTE | 2025-01-18 18:08 | DVHPN2 ---
Subjective in bed resting Changes from previous H/P or p: No Changes Eyes: No Pain, No Vision change, No Conjunctivae inflammation, No Eyelid inflammation, No Other, No Redness ENT: No Ear pain, No Ear discharge, No Nose pain, No Nose discharge, No Nose congestion, No Mouth pain, No Mouth swelling, No Throat pain, No Throat swelling, No Other Cardiovascular: No Chest Pain, No Palpitations, No Orthopnea, No Paroxysmal Noc. Dyspnea, No Edema, No Lt Headedness, No Other Respiratory: No Cough, No Dry, No Shortness of breath, No SOB with excertion, No Wheezing, No Hemoptysis, No Pleuritic Pain, No Sputum, No Other Gastrointestinal: No Nausea, No Vomiting, No Abdominal Pain, No Diarrhea, No Constipation, No Melena, No Hematochezia, No Other Genitourinary: No Dysuria, No Frequency, No Incontinence, No Hematuria, No Retention, No Other Skin: No Rash, No Lesions, No Jaundice, No Bruising, No Other Objective Vitals Vital Signs Date Time Temp Pulse Resp B/P (MAP) Pulse Ox O2 Delivery O2 Flow Rate FiO2 01/18/25 16:36 98.3 97 17 140/82 (101) 97 98.3 01/18/25 08:00 Nasal Cannula* 2 28 Intake/Output Intake and Output 01/18/25 07:00 Intake Total 1100 ml Balance 1100 ml Intake Oral 1000 ml IV Total 100 ml # Voids 2 # Bowel Movements 1 General Appearance: Alert Lungs: Clear to auscultation Cardiovascular: Regular rate Medications Current Medications Medications Dose Ordered Sig/Yani Route Start Time Stop Time Status Last Admin Dose Admin Nitroglycerin 0.4 mg Q5MINP PRN SL 01/14/25 02:15 Morphine Sulfate 2 mg Q30M PRN IV 01/14/25 02:15 Tacrolimus 4 mg BID PO 01/14/25 10:00 01/18/25 10:24 4 MG Patient Own Medication 10 DAILY PO 01/14/25 10:00 01/17/25 10:00 10 Fluconazole 100 mg DAILY PO 01/14/25 10:00 01/18/25 10:24 100 MG Mycophenolate Mofetil 250 mg Q12H PO 01/14/25 09:00 01/18/25 10:24 250 MG Diagnostic Test (Pha) 1 strip ACHS 01/14/25 17:00 01/18/25 16:58 1 STRIP Insulin Human Regular ACHS SC 01/14/25 17:00 01/18/25 17:54 2 UNITS Dextrose 50 ml UD PRN IV 01/14/25 14:00 Patient Own Medication 200 BID PO 01/15/25 10:00 Hold Pantoprazole Sodium 40 mg DAILY@0600 PO 01/16/25 06:00 01/18/25 05:59 40 MG Furosemide 60 mg DAILY IV 01/16/25 10:00 01/17/25 10:42 60 MG Meropenem 50 ml @ 17 mls/hr Q12H IV 01/16/25 22:00 01/18/25 10:23 17 MLS/HR Laboratory Results Laboratory Tests 01/17/25 05:21 Microbiology Microbiology Date/Time Source Procedure Growth Status 01/16/25 21:17 Blood Blood Culture - Preliminary Resulted 01/15/25 01:44 Nose MRSA Screen - Final Complete 01/14/25 03:06 Stool Stool Culture - Final Complete 01/14/25 03:06 Stool Shiga Toxin I & II - Final Complete 01/14/25 03:06 Stool Clostridium difficile Toxin Assay - Final Complete Assessment/Plan Assessment/Plan #1 hypoglycemia: ssi #2 anemia s/p transfusion: check cbc #3 thrombocytopenia #4 s/p liver txp #5 esrd on dialysis #6 acute diastolic heart failure: dialysis today #7 dm #8 h/o recent c diff infection #9 acute resp failure: on oxygen #10 sepsis with gram neg rods: iv meropnem, ua, culture Pending transfer to [facility] Plan discussed with: Patient, Daughter Plan discussed with: Patient Date of Service: Jan 18, 2025 Billing Provider: LINDA BLACKWELL MD Common Visit Codes: [id number] INP/OBS CARE(HIGH) LINDA BLACKWELL MD Jan 18, 2025 18:08
[2025-01-18] MEDS: ALBUMIN 25% 100 ML IV PRN (19:31)
[2025-01-18] MEDS: EPOETIN ALFA-EPBX 10,000 UNIT/1ML VIAL SC ONE (21:00)
[2025-01-19] VITALS (8 sets, daily range): BP systolic 109–134; BP diastolic 62–76; PULSE 89–109; RESP 16–18; TEMP 97.8–99.4; O2SAT 94–98
--- NOTE | 2025-01-19 11:13 | DVHPN2 ---
Progress Note - Dictate Date Seen: Jan 19, 2025 Medical Necessity Reason Pt with a Central, PICC or Fol: No Subjective Patient seen at bedside Awaiting transfer to [facility] Underwent HD yesterday with UF of 2 liters vital signs Vital Sign Date Time Temp Pulse Resp B/P (MAP) Pulse Ox O2 Delivery O2 Flow Rate FiO2 01/19/25 10:47 125/74 01/19/25 08:53 97.8 92 18 98 97.8 01/19/25 08:00 Nasal Cannula* 2 28 Total Intake and Output 01/18/25 01/18/25 01/19/25 15:00 23:00 07:00 Intake Total 50 ml 230 ml 100 ml Balance 50 ml 230 ml 100 ml medications Current Medications Medications Dose Ordered Sig/Yani Route Start Time Stop Time Status Last Admin Dose Admin Nitroglycerin 0.4 mg Q5MINP PRN SL 01/14/25 02:15 Morphine Sulfate 2 mg Q30M PRN IV 01/14/25 02:15 Tacrolimus 4 mg BID PO 01/14/25 10:00 01/19/25 10:47 4 MG Patient Own Medication 10 DAILY PO 01/14/25 10:00 01/19/25 10:48 10 Fluconazole 100 mg DAILY PO 01/14/25 10:00 01/19/25 10:48 100 MG Mycophenolate Mofetil 250 mg Q12H PO 01/14/25 09:00 01/19/25 10:48 250 MG Diagnostic Test (Pha) 1 strip ACHS 01/14/25 17:00 01/19/25 06:30 1 STRIP Insulin Human Regular ACHS SC 01/14/25 17:00 01/18/25 22:39 2 UNITS Dextrose 50 ml UD PRN IV 01/14/25 14:00 Patient Own Medication 200 BID PO 01/15/25 10:00 Hold Pantoprazole Sodium 40 mg DAILY@0600 PO 01/16/25 06:00 01/19/25 06:27 40 MG Furosemide 60 mg DAILY IV 01/16/25 10:00 01/19/25 10:47 60 MG Meropenem 50 ml @ 17 mls/hr Q12H IV 01/16/25 22:00 01/19/25 10:54 17 MLS/HR Albumin Human 100 ml @ 100 mls/hr Q8H PRN IV 01/18/25 19:00 2/23/25 11:59 01/18/25 20:21 100 MLS/HR objective General Appearance: Tachypneic HEENT: Atraumatic, PERRLA, EOMI, Mucous membr. moist/pink Respiratory: Diminished breath sounds at bases Cardiovascular: Regular rate, Normal S1, Normal S2 Abdominal: Normal bowel sounds, Soft Extremities: No clubbing, No cyanosis, No edema Skin: No rashes Neuro: Normal gait, Normal speech, Strength at 5/5 X4 ext Psych/Mental Status: Mental status NL, Mood NL laboratory and microbiology Laboratory Tests 01/17/25 05:21 Test 01/17/25 05:21 Range/Units Serum Glucose 136 H 74-106 mg/dL Problem List End-stage kidney disease on hemodialysis Bacteremia with gram negative rods [Kleibsiella] Anemia s/p transfusion Bilateral Pneumonia Thrombocytopenia History of liver transplant Hypoglycemia bilateral pleural effusion Assessment/Plan Pulmonary evaluation Continue IV antibiotics Patient on Meropenem lasix 60 mg IV daily continue cellcept and Tacrolimus Epo with HD Being transferred to [facility] , awaiting bed Next HD on Monday Dietary Evaluation Review Comments: 1) Add renal restriction to 45g CCHO diet order 2) Promote good PO intake 3) Continue to monitor appetite, labs, and skin integrity Expected Outcomes/Goals: 1) appetite and labs to improve 2) f/u in 5 days Plan discussed with: Patient CC Plasma Assessment Blood Product Administration S: [id number] CORBIN SAVAGE MD Jan 19, 2025 11:13
--- NOTE | 2025-01-19 14:37 | DVHPN2 ---
Subjective in bed resting Changes from previous H/P or p: No Changes Eyes: No Pain, No Vision change, No Conjunctivae inflammation, No Eyelid inflammation, No Other, No Redness ENT: No Ear pain, No Ear discharge, No Nose pain, No Nose discharge, No Nose congestion, No Mouth pain, No Mouth swelling, No Throat pain, No Throat swelling, No Other Cardiovascular: No Chest Pain, No Palpitations, No Orthopnea, No Paroxysmal Noc. Dyspnea, No Edema, No Lt Headedness, No Other Respiratory: No Cough, No Dry, No Shortness of breath, No SOB with excertion, No Wheezing, No Hemoptysis, No Pleuritic Pain, No Sputum, No Other Gastrointestinal: No Nausea, No Vomiting, No Abdominal Pain, No Diarrhea, No Constipation, No Melena, No Hematochezia, No Other Genitourinary: No Dysuria, No Frequency, No Incontinence, No Hematuria, No Retention, No Other Skin: No Rash, No Lesions, No Jaundice, No Bruising, No Other Objective Vitals Vital Signs Date Time Temp Pulse Resp B/P (MAP) Pulse Ox O2 Delivery O2 Flow Rate FiO2 01/19/25 13:26 98.0 94 18 109/63 (78) 96 98.0 01/19/25 08:00 Nasal Cannula* 2 28 Intake/Output Intake and Output 01/19/25 07:00 Intake Total 380 ml Balance 380 ml Intake Oral 280 ml IV Total 100 ml # Voids 1 # Bowel Movements 1 General Appearance: Alert Lungs: Clear to auscultation Cardiovascular: Regular rate Medications Current Medications Medications Dose Ordered Sig/Yani Route Start Time Stop Time Status Last Admin Dose Admin Nitroglycerin 0.4 mg Q5MINP PRN SL 01/14/25 02:15 Morphine Sulfate 2 mg Q30M PRN IV 01/14/25 02:15 Tacrolimus 4 mg BID PO 01/14/25 10:00 01/19/25 10:47 4 MG Patient Own Medication 10 DAILY PO 01/14/25 10:00 01/19/25 10:48 10 Fluconazole 100 mg DAILY PO 01/14/25 10:00 01/19/25 10:48 100 MG Mycophenolate Mofetil 250 mg Q12H PO 01/14/25 09:00 01/19/25 10:48 250 MG Diagnostic Test (Pha) 1 strip ACHS 01/14/25 17:00 01/19/25 11:44 1 STRIP Insulin Human Regular ACHS SC 01/14/25 17:00 01/19/25 11:54 2 UNITS Dextrose 50 ml UD PRN IV 01/14/25 14:00 Patient Own Medication 200 BID PO 01/15/25 10:00 Hold Pantoprazole Sodium 40 mg DAILY@0600 PO 01/16/25 06:00 01/19/25 06:27 40 MG Furosemide 60 mg DAILY IV 01/16/25 10:00 01/19/25 10:47 60 MG Meropenem 50 ml @ 17 mls/hr Q12H IV 01/16/25 22:00 01/19/25 10:54 17 MLS/HR Laboratory Results Laboratory Tests 01/17/25 05:21 Microbiology Microbiology Date/Time Source Procedure Growth Status 01/16/25 21:17 Blood Blood Culture - Preliminary Resulted 01/15/25 01:44 Nose MRSA Screen - Final Complete 01/14/25 03:06 Stool Stool Culture - Final Complete 01/14/25 03:06 Stool Shiga Toxin I & II - Final Complete 01/14/25 03:06 Stool Clostridium difficile Toxin Assay - Final Complete Assessment/Plan Assessment/Plan #1 hypoglycemia: ssi #2 anemia s/p transfusion: check cbc #3 thrombocytopenia #4 s/p liver txp #5 esrd on dialysis #6 acute diastolic heart failure: dialysis today #7 dm #8 h/o recent c diff infection #9 acute resp failure: on oxygen #10 sepsis with gram neg rods: iv meropnem, ua, culture Pending transfer to [facility] Plan discussed with: Patient, Daughter Plan discussed with: Patient Date of Service: Jan 19, 2025 Billing Provider: LINDA BLACKWELL MD Common Visit Codes: [id number] INP/OBS CARE(HIGH) LINDA BLACKWELL MD Jan 19, 2025 14:36
--- NOTE | 2025-01-19 19:10 | DVHINCON2 ---
Date of service: Jan 18, [address] 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 In the ER patient was noted to be anemic with a hemoglobin of 5.7. Transfused PRBC. Chest x-ray with evidence of airspace disease. Pt was started on IV antibiotics. Note, pt did undergo dialysis day prior to presentation with ultrafiltration of 2 L. Patient was admitted for further care and pulmonary consultation is requested for evaluation and management of acute hypoxic respiratory failure and pleural effusion. Review of Systems: 14-point review of systems negative unless otherwise noted above. Past Medical History: Liver transplant for nonalcoholic steatohepatitis in May of 2024 at [facility], end- stage kidney disease requiring dialysis twice a week Past Surgical History: Liver transplant Medications: Reviewed. Allergies: No known drug allergies. Family History: No family history of premature CAD. No family history of lung disorders. Social History: Nonsmoker. No alcohol or illicit drug use Family History: Patient reports no known family medical history. Allergies: Coded Allergies: NO KNOWN ALLERGIES (Unverified , 03/05/24) Home Meds Reported Medications Furosemide (Furosemide) 20 Mg Tab 01/14/25 Ursodiol (Ursodiol) 300 Mg Cap 01/14/25 Tacrolimus (Tacrolimus) 1 Mg Cap 01/14/25 Atovaquone (Atovaquone) 750 Mg/5 Ml Sienna, PO 01/14/25 Fidaxomicin (DIFICID) 200 Mg Tab, 1 01/14/25 Mycophenolate Mofetil (Mycophenolate Mofetil) 250 Mg Cap 01/14/25 Vital Signs Vital Signs Date Time Temp Pulse Resp B/P (MAP) Pulse Ox O2 Delivery O2 Flow Rate FiO2 01/19/25 17:33 98.2 98 18 127/74 (91) 96 98.2 01/19/25 08:00 Nasal Cannula* 2 28 Physical Exam Gen.: Patient lying in bed in no apparent distress. On supplemental oxygen. Head: Normocephalic, atraumatic. Eyes: EOMI/PERRLA. Ears: Normal hearing. Normal anatomy. Neck/trachea: Trachea midline, supple. Nose: Normal external anatomy. Mouth: Moist mucous membranes. Chest: Decreased air entry bilaterally. No wheezing or rhonchi. Cardiovascular: Positive S1, positive S2. Regular rate and rhythm. Abdomen: Positive bowel sounds in all 4 quadrants. Soft, non-tender, non- distended. : Deferred. Rectal: Deferred. Skin: Warm, dry. Intact. Extremities: 2+ radial pulses bilaterally. No lower extremity edema. Neuro: Awake, alert, oriented x3. No gross motor or sensory deficits. Cranial nerves II through XII intact. Gait not assessed. Labs/Diagnostic Data Labs Test 01/19/25 16:57 01/17/25 05:21 01/16/25 05:50 01/15/25 05:25 Range/Units POC Glucose 143 H 70-106 mg/dl White Blood Count 8.7 4.4-10.8 10^3/uL Red Blood Count 2.96 L 4.0-5.20 10^6/uL Hemoglobin 7.6 L 12.2-16.2 g/dL Hematocrit 23.4 #L 36.0-46.0 % Mean Corpuscular Volume 78.9 L 80.0-100.0 fL Mean Corpuscular Hemoglobin 25.8 L 28.0-32.0 pg Mean Corpuscular Hemoglobin Concent 32.7 32.0-36.0 g/dL Red Cell Distribution Width 20.0 H 11.8-14.3 % Platelet Count 46 L 140-450 10^3/uL Mean Platelet Volume 7.4 6.9-10.8 fL Neutrophils (%) (Auto) 37.0-80.0 % Lymphocytes (%) (Auto) 10.0-50.0 % Monocytes (%) (Auto) 0.0-12.0 % Basophils (%) (Auto) 0.0-2.0 % Neutrophils # (Auto) 1.6-8.6 10 ^3/uL Lymphocytes # (Auto) 0.4-5.4 10 ^3/uL Monocytes # (Auto) 0-1.3 10 ^3/uL Differential Total Cells Counted 100.0 100 Neutrophils % (Manual) 86 H 37.0-80.0 Band Neutrophils % (Manual) 0 Lymphocytes % (Manual) 9 L 10.0-50.0 Monocytes % (Manual) 4 0-12 Eosinophils % (Manual) 1 0-7 Basophils % (Manual) 0 0.0-2.0 Metamyelocytes % (manual) 0 Myelocytes % (Manual) 0 Promyelocytes % (Manual) 0 Blast Cells % (Manual) 0 Reactive Lymphocytes 0 Platelet Estimate Decreased Sodium Level 137 136-145 mmol/L Potassium Level 4.3 3.5-5.1 mmol/L Chloride Level 97 L 98-107 mmol/L Carbon Dioxide Level 34 H 20-31 mmol/L Anion Gap 6 5-15 Blood Urea Nitrogen 30 H 9-23 mg/dL Creatinine 2.87 H 0.550-1.02 mg/dL Glomerular Filtration Rate Calc 19 >90 mL/min BUN/Creatinine Ratio 10.5 10.0-20.0 Serum Glucose 136 H 74-106 mg/dL Calcium Level 8.2 L 8.7-10.4 mg/dL Total Bilirubin 0.6 0.2-1.0 mg/dL Aspartate Amino Transferase (AST) 13 13-40 U/L Alanine Aminotransferase (ALT) < 9 7-40 U/L Alkaline Phosphatase 90 46-116 U/L Total Protein 4.3 L 5.7-8.2 g/dL Albumin 2.4 L 3.2-4.8 g/dL Eosinophils (%) (Auto) 1.2 0.0-7.0 % Eosinophils # (Auto) 0.1 0-0.8 10 ^3/uL Basophils # (Auto) 0.1 0-0.2 10 ^3/uL Nucleated Red Blood Cells 0.0 % Prothrombin Time 13.0 H 9.3-11.8 sec Prothrombin Time INR 1.25 H 0.9-1.15 Activated Partial Thromboplast Time 43.1 H 24.5-34.5 SEC Hemoglobin A1c 4.9 <5.7 % A1C Lactic Acid Level 0.9 0.4-2.0 mmol/L Phosphorus Level 3.0 2.4-5.1 mg/dL Magnesium Level 1.9 1.6-2.6 mg/dL Triglycerides Level 98 < 150 mg/dL Cholesterol Level 80 < 200 mg/dL LDL Cholesterol 31 < 100 mg/dL HDL Cholesterol 17 L 40-59 mg/dL Vitamin B12 Level 6573 H 211-911 pg/mL Vitamin D 25-Hydroxy 27.9 L 30.0-100 ng/mL Thyroid Stimulating Hormone (TSH) 3.31 0.55-4.78 uIU/mL Test 01/14/25 16:11 01/14/25 09:54 01/14/25 03:06 01/14/25 02:45 Range/Units Poikilocytosis (manual) Slight Anisocytosis (manual) Slight Schistocytes Few Haptoglobin 221 33-346 mg/dL Iron Level 28 L 50-170 ug/dL Total Iron Binding Capacity 137 L 250-425 ug/dL Percent Iron Saturation 20.4 15-50 % Erythropoietin 247.6 H 2.6-18.5 mIU/mL Ferritin 2835.2 H 10-291 ng/mL Stool Occult Blood Negative Negative Stool Occult Blood Sample #3 Negative Stool for White Cells None seen Influenza Type A Antigen Negative Negative Influenza Type B Antigen Negative Negative SARS-CoV-2 Antigen (Rapid) Negative NEGATIVE Test 01/13/25 23:11 01/13/25 22:20 Range/Units Troponin I High Sensitivity < 3 L </=34 ng/L Hypochromasia (manual) Moderate Microcytosis Slight Stomatocytes Few B-Type Natriuretic Peptide 233.77 0-100 pg/mL Microbiology Date/Time Source Procedure Growth Status 01/16/25 21:17 Blood Blood Culture - Preliminary Resulted 01/15/25 01:44 Nose MRSA Screen - Final Complete 01/14/25 03:06 Stool Stool Culture - Final Complete 01/14/25 03:06 Stool Shiga Toxin I & II - Final Complete 01/14/25 03:06 Stool Clostridium difficile Toxin Assay - Final Complete Assessment Impression: Acute hypoxic respiratory failure Pleural effusion Atelectasis Obesity, BMI 30 Anemia Thrombocytopenia Hx of liver transplantation ESRD, on hemodialysis Sepsis with gram-negative rods Plan: Consulted by Dr Logan. Supplemental oxygen, on 2 LPM via NC Titrate to keep O2 sats above 92%. CXR reviewed, demonstrates bilateral pleural effusions, cardiomegaly, mild pulmonary congestion Continue antibiotics Incentive spirometry Blood cultures show no growth after 24 hours Prior blood cultures showed no growth after 5 days Monitor renal function. Monitor electrolytes. Supplement as necessary. Monitor ins and outs. HD per Nephrology Nephrology recs appreciated Monitor hemoglobin Transfuse if less than 7.0 g/dL. Monitor platelets Awaiting transfer to [facility]. DVT prophylaxis. Prognosis: Poor given patient's multiple co-morbidities. Rest of plan per hospitalist and other consultants. Thank you Dr. Liu for allowing me to participate in this patient's care. Further recommendations will depend on the patient's clinical course. Please do not hesitate to contact me if you have any questions or concerns. This medical document was created using an electronic medical record system with [employer] dictation system. Although these documentations are being carefully reviewed, there may still be some phonetic and typographical changes. The errors are purely typographical, due to imperfection on the software program, and do not reflect any compromise in the patient's medical care. Plan discussed with: Other (SITA Ramos/Dr. Liu) JABARI GUTIERREZ MD Jan 19, 2025 19:10
--- NOTE | 2025-01-19 22:50 | DVHPN2 ---
Progress Note - Dictate Date Seen: Jan 19, 2025 Medical Necessity Reason Pt with a Central, PICC or Fol: No Subjective Patient seen and examined at bedside. Remains on supplemental oxygen Overnight events reviewed. vital signs Vital Sign Date Time Temp Pulse Resp B/P (MAP) Pulse Ox O2 Delivery O2 Flow Rate FiO2 01/19/25 21:00 99.4 109 17 124/62 (82) 94 99.4 01/19/25 20:00 Nasal Cannula* 2 28 Total Intake and Output 01/18/25 01/18/25 01/19/25 15:00 23:00 07:00 Intake Total 50 ml 230 ml 100 ml Balance 50 ml 230 ml 100 ml medications Current Medications Medications Dose Ordered Sig/Yani Route Start Time Stop Time Status Last Admin Dose Admin Nitroglycerin 0.4 mg Q5MINP PRN SL 01/14/25 02:15 Morphine Sulfate 2 mg Q30M PRN IV 01/14/25 02:15 Tacrolimus 4 mg BID PO 01/14/25 10:00 01/19/25 21:15 4 MG Patient Own Medication 10 DAILY PO 01/14/25 10:00 01/19/25 10:48 10 Fluconazole 100 mg DAILY PO 01/14/25 10:00 01/19/25 10:48 100 MG Mycophenolate Mofetil 250 mg Q12H PO 01/14/25 09:00 01/19/25 21:16 250 MG Diagnostic Test (Pha) 1 strip ACHS 01/14/25 17:00 01/19/25 21:30 1 STRIP Insulin Human Regular ACHS SC 01/14/25 17:00 01/19/25 17:11 2 UNITS Dextrose 50 ml UD PRN IV 01/14/25 14:00 Patient Own Medication 200 BID PO 01/15/25 10:00 Hold Pantoprazole Sodium 40 mg DAILY@0600 PO 01/16/25 06:00 01/19/25 06:27 40 MG Furosemide 60 mg DAILY IV 01/16/25 10:00 01/19/25 10:47 60 MG Meropenem 50 ml @ 17 mls/hr Q12H IV 01/16/25 22:00 01/19/25 21:18 17 MLS/HR objective Gen.: Patient lying in bed in no apparent distress. On supplemental oxygen. Head: Normocephalic, atraumatic. Eyes: EOMI/PERRLA. Ears: Normal hearing. Normal anatomy. Neck/trachea: Trachea midline, supple. Nose: Normal external anatomy. Mouth: Moist mucous membranes. Chest: Decreased air entry bilaterally. No wheezing or rhonchi. Cardiovascular: Positive S1, positive S2. Regular rate and rhythm. Abdomen: Positive bowel sounds in all 4 quadrants. Soft, non-tender, non- distended. : Deferred. Rectal: Deferred. Skin: Warm, dry. Intact. Extremities: 2+ radial pulses bilaterally. No lower extremity edema. Neuro: Awake, alert, oriented x3. No gross motor or sensory deficits. Cranial nerves II through XII intact. Gait not assessed. laboratory and microbiology Laboratory Tests 01/17/25 05:21 Test 01/17/25 05:21 Range/Units Serum Glucose 136 H 74-106 mg/dL Assessment/Plan Impression: Acute hypoxic respiratory failure Pleural effusion Atelectasis Obesity, BMI 30 Anemia Thrombocytopenia Hx of liver transplantation ESRD, on hemodialysis Sepsis with gram-negative rods Events: Limited chest ultrasound notable for moderate right pleural effusion May require right thoracentesis if fluid amenable for thora. Note - pt declined thoracentesis. Remains on supplemental oxygen, 2 LPM NC Taper O2 as tolerated Continue antibiotics Incentive spirometry Monitor hemoglobin Monitor platelet count Labs and imaging reviewed. Rest of plan as noted below. Plan: Supplemental oxygen Titrate to keep O2 sats above 92%. CXR reviewed, demonstrates bilateral pleural effusions, cardiomegaly, mild pulmonary congestion Continue antibiotics Incentive spirometry Blood cultures show no growth after 24 hours Prior blood cultures showed no growth after 5 days Monitor renal function. Monitor electrolytes. Supplement as necessary. Monitor ins and outs. HD per Nephrology Monitor hemoglobin Transfuse if less than 7.0 g/dL. Monitor platelets Awaiting transfer to [facility]. DVT prophylaxis. Prognosis: Poor given patient's multiple co-morbidities. Rest of plan per hospitalist and other consultants. Thank you Dr. Liu for allowing me to participate in this patient's care. Further recommendations will depend on the patient's clinical course. Please do not hesitate to contact me if you have any questions or concerns. This medical document was created using an electronic medical record system with [employer] system. Although these documentations are being carefully reviewed, there may still be some phonetic and typographical changes. The errors are purely typographical, due to imperfection on the software program, and do not reflect any compromise in the patient's medical care. Dietary Evaluation Review Comments: 1) Add renal restriction to 45g CCHO diet order 2) Promote good PO intake 3) Continue to monitor appetite, labs, and skin integrity Expected Outcomes/Goals: 1) appetite and labs to improve 2) f/u in 5 days Plan discussed with: Patient, Other (RN) CC Plasma Assessment Blood Product Administration S: [id number] JABARI GUTIERREZ MD Jan 19, 2025 22:50
[2025-01-20 01:00] VITALS: BP 104/61; PULSE 118; RESP 19; TEMP 99.7; O2SAT 97
[2025-01-20 05:00] VITALS: BP 119/66; PULSE 113; RESP 19; TEMP 99.2; O2SAT 99
[2025-01-20 08:00] VITALS: PULSE 102; PULSE 107; RESP 18; O2SAT 98
[2025-01-20 09:00] VITALS: BP 101/47; PULSE 102; RESP 17; TEMP 98; O2SAT 98
[2025-01-20] MEDS: SODIUM CHL 0.9% 1000 ML BAG XX ONE (09:00)
[2025-01-20 11:17] LABS: Hepatitis A Ab IgM Negative; Hepatitis B Core IgM Negative (Negative); Hepatitis B Surface Antigen Negative (Negative); Hepatitis C Antibody Negative (Negative)
--- NOTE | 2025-01-20 11:33 | DVHPN2 ---
Progress Note Date Seen: Jan 20, 2025 Medical Necessity Reason Pt with a Central, PICC or Fol: No Subjective Patient reports: No new complaints Review of Systems: HEENT:Normal, CVS:Normal, RESPIRATORY:Normal, GI:Normal, :Normal, MSK:Normal, NEURO:Normal Objective vital signs Vital Sign Date Time Temp Pulse Resp B/P (MAP) Pulse Ox O2 Delivery O2 Flow Rate FiO2 01/20/25 09:00 98.0 102 17 101/47 (65) 98 98.0 01/19/25 20:00 Nasal Cannula* 2 28 Total Intake and Output 01/19/25 01/19/25 01/20/25 15:00 23:00 07:00 Intake Total 50 ml 100 ml 200 ml Balance 50 ml 100 ml 200 ml medications Current Medications Medications Dose Ordered Sig/Yani Route Start Time Stop Time Status Last Admin Dose Admin Nitroglycerin 0.4 mg Q5MINP PRN SL 01/14/25 02:15 Morphine Sulfate 2 mg Q30M PRN IV 01/14/25 02:15 Tacrolimus 4 mg BID PO 01/14/25 10:00 01/19/25 21:15 4 MG Patient Own Medication 10 DAILY PO 01/14/25 10:00 01/19/25 10:48 10 Fluconazole 100 mg DAILY PO 01/14/25 10:00 01/19/25 10:48 100 MG Mycophenolate Mofetil 250 mg Q12H PO 01/14/25 09:00 01/19/25 21:16 250 MG Diagnostic Test (Pha) 1 strip ACHS 01/14/25 17:00 01/20/25 06:17 1 STRIP Insulin Human Regular ACHS SC 01/14/25 17:00 01/20/25 06:23 3 UNITS Dextrose 50 ml UD PRN IV 01/14/25 14:00 Patient Own Medication 200 BID PO 01/15/25 10:00 Hold Pantoprazole Sodium 40 mg DAILY@0600 PO 01/16/25 06:00 01/20/25 06:16 40 MG Furosemide 60 mg DAILY IV 01/16/25 10:00 01/19/25 10:47 60 MG Meropenem 50 ml @ 17 mls/hr Q12H IV 01/16/25 22:00 01/19/25 21:18 17 MLS/HR Albumin Human 100 ml @ 100 mls/hr Q1HR IV 01/20/25 10:00 01/20/25 11:59 Examination: GENERAL:Normal, HEENT:Normal, NECK:Normal, LUNGS:Normal, LUNGS:Abnormal (on oxgen, decreased bilateral), CVS:Normal, ABDOMEN:Normal, MSK:Normal, SKIN:Normal, NEURO:Normal, :Normal laboratory and microbiology Laboratory Tests 01/17/25 05:21 Test 01/17/25 05:21 Range/Units Serum Glucose 136 H 74-106 mg/dL Microbiology Date/Time Source Procedure Growth Status 01/16/25 21:17 Blood Blood Culture - Preliminary Resulted 01/15/25 01:44 Nose MRSA Screen - Final Complete 01/14/25 03:06 Stool Stool Culture - Final Complete 01/14/25 03:06 Stool Shiga Toxin I & II - Final Complete 01/14/25 03:06 Stool Clostridium difficile Toxin Assay - Final Complete Problem List/Assessment/Plan Problem List/Assessment/Plan #1 hypoglycemia: ssi #2 anemia s/p transfusion: check cbc #3 thrombocytopenia #4 s/p liver txp #5 esrd on dialysis #6 acute diastolic heart failure: dialysis today #7 dm #8 h/o recent c diff infection #9 acute resp failure: on oxygen #10 sepsis with pseud: iv meropnem, ua, culture advance care planning- full code- time spent 19 mins transfer to [facility] today Plan discussed with: Patient My Orders My Orders Orders - VIKI HUFF MD Procedure Category Date Status Time * Dietary Consult CONS 01/19/25 Transmitted 14:24 * Wound Consult CONS 01/19/25 Transmitted Imaging Transfer ORDERS 01/20/25 Transmitted Request 11:01 Complete Blood Count LAB 01/21/25 Verified 06:00 Comprehensive LAB 01/21/25 Verified Metabolic Panel 06:00 Blood Culture TOMI 01/21/25 Logged 05:00 Chest Portable XY 01/21/25 Logged 06:00 Dietary Evaluation Review Comments: 1) Add renal restriction to 45g CCHO diet order 2) Promote good PO intake 3) Continue to monitor appetite, labs, and skin integrity Expected Outcomes/Goals: 1) appetite and labs to improve 2) f/u in 5 days Date of Service: Jan 20, 2025 Billing Provider: VIKI HUFF MD Common Visit Codes: [id number] INP/OBS CARE(HIGH) CC Plasma Assessment Blood Product Administration S: [id number] VIKI HUFF MD Jan 20, 2025 11:33
[2025-01-20] MEDS ORDERED: MIDODRINE HCL 10 MG TAB PO ONE (12:15)
[2025-01-20 12:17] VITALS: BP 107/53; PULSE 98; RESP 17; TEMP 98; O2SAT 98
[2025-01-20] MEDS: ALBUMIN 25% 100 ML IV SCH (13:10)
[2025-01-20] MEDS ORDERED: EPOETIN ALFA-EPBX 10,000 UNIT/1ML VIAL SC ONE (21:00)
== END 2025-01-20 13:33 | disposition short-term general hospital (02) | DRG 871 ==
LOC: ER 21:28 → OVERFLOW 01-14 02:07 → TELE-EAST 01-14 14:52
PROVIDERS: ADMIT Internal Medicine; ATTEND Internal Medicine
PROC: 30233N1 Transfusion of Nonautologous Red Blood Cells into Peripheral Vein, Percutaneous Approach (ICD-10-PCS; principal; 2025-01-14)
PROC: 5A1D70Z Performance of Urinary Filtration, Intermittent, Less than 6 Hours Per Day (ICD-10-PCS; 2025-01-17)
PROC: 5A1D70Z Performance of Urinary Filtration, Intermittent, Less than 6 Hours Per Day (ICD-10-PCS; 2025-01-18)
PROC: 5A1D70Z Performance of Urinary Filtration, Intermittent, Less than 6 Hours Per Day (ICD-10-PCS; 2025-01-20)
DX: A41.52 Sepsis due to Pseudomonas (principal); I50.31 Acute diastolic (congestive) heart failure; N18.6 End stage renal disease; J15.9 Unspecified bacterial pneumonia; J96.01 Acute respiratory failure with hypoxia; J15.1 Pneumonia due to Pseudomonas; E87.20 Acidosis, unspecified; Z94.4 Liver transplant status; G93.40 Encephalopathy, unspecified; I13.2 Hypertensive heart and chronic kidney disease with heart failure and with stage 5 chronic kidney disease, or end stage renal disease; Z20.822 Contact with and (suspected) exposure to COVID-19; D64.9 Anemia, unspecified; K74.60 Unspecified cirrhosis of liver; K75.81 Nonalcoholic steatohepatitis (NASH); E66.9 Obesity, unspecified; E11.649 Type 2 diabetes mellitus with hypoglycemia without coma; D69.6 Thrombocytopenia, unspecified; E11.22 Type 2 diabetes mellitus with diabetic chronic kidney disease; K80.20 Calculus of gallbladder without cholecystitis without obstruction; Z98.891 History of uterine scar from previous surgery; Z79.4 Long term (current) use of insulin; Z68.30 Body mass index [BMI] 30.0-30.9, adult
CPT/HCPCS: 36415; 71045; 76604; 80048; 80053; 80061; 80074; 82270; 82306; 82607; 82668; 82728; 82962; 83010; 83036; 83540; 83550; 83605; 83735; 83880; 84100; 84443; 84484; 85007; 85025; 85027; 85048; 85610; 85730; 86850; 86900; 86901; 86920; 87040; 87045; 87077; 87081; 87186; 87340; 87426; 87427; 87493; 87804; 90935; 93005; 93306; 97110; 97163; 97530; 99291; G0378; J1642; J1815; J2185; J2470; J7507; J7517; P9047